=== PATIENT | male | born 1940 | race African-American/Black ===

== ENCOUNTER 2017-03-02 19:31 | Emergency (ER) | payer OTHER ==
[2017-03-02 19:52] VITALS: BP 145/76; BMI 29.6
--- NOTE | 2017-03-02 22:56 | PDOC ---
History of Present Illness - General History Source: Patient, Family, Old Records Exam Limitations: No Limitations <Brooklynn Adam - Last Filed: 03/03/17 00:20> <Favian Beltrán - Last Filed: 03/03/17 02:05> <Thuan Elizondo - Last Filed: 03/03/17 05:35> - General Chief Complaint: Chest Pain Stated Complaint: CHEST PAIN Time Seen by Provider: 03/02/17 22:56 - History of Present Illness Initial Comments: 03/03/17 00:20 The patient is a 76 year old male, with a significant past medical history of hypertension, atrial fibrillation (on Eliquis) s/p recent ablation, diabetes, GERD and prostate CA, who presents to the emergency department with chest discomfort and intermittent palpitations from approximately 4-7 PM this afternoon. The patient reports that he recently had a cardiac ablation done on at [facility]. The patient reports that he took 2 Tylenol after the onset of the chest discomfort, with relief of symptoms. Currently in the ED, the patient states that the chest discomfort has completely subsided. The patient additionally reports decreased hearing out of the right ear and right ear ringing, which the patient states suddenly started earlier today. The patient denies any recent swimming. The patient additionally reports a dry cough for the past 5 days. The patient denies shortness of breath. The patient denies fever, chills, nausea, vomiting or diarrhea. The patients family is at the bedside. The patients primary language is Bulgarian. Allergies: None reported. Past Surgical History: Cardiac Ablation; Cholecystectomy. Social History: Non smoker. Denies alcohol or drug use. PCP: Dr. Patel Ingot Header: Dr. Ornelas (Brooklynn Adam) Past History <Brooklynn Adam - Last Filed: 03/03/17 00:20> - Past Medical History Cardiac Disorders: Yes (A FIB) Diabetes: Yes (NIDDM) GI Disorders: Yes (ACID REFLUX) Disorders: Yes (PROSTATE CANCER) HTN: Yes Suicide Attempt (Hx): No - Surgical History Cholecystectomy: Yes - Psycho/Social/Smoking Cessation Hx Anxiety: No Suicidal Ideation: No Smoking History: Never smoked Hx Alcohol Use: No (social in past) Drug/Substance Use Hx: No Substance Use Type: None <Favian Beltrán - Last Filed: 03/03/17 02:05> <Thuan Elizondo - Last Filed: 03/03/17 05:35> - Past Medical History Allergies/Adverse Reactions: Allergies Allergy/AdvReac Type Severity Reaction Status Date / Time No Known Allergies Allergy Verified 03/02/17 19:52 Home Medications: Ambulatory Orders Ferrous Sulfate [Feosol] 325 mg PO DAILY 02/20/15 Fluticasone Propionate [Flovent Hfa] 44 mcg IH BID 02/20/15 Metoprolol Tartrate [Lopressor] 100 mg PO BID 02/20/15 Simvastatin [Zocor -] 10 mg PO HS 02/20/15 Acetaminophen [Tylenol] 500 mg PO QID PRN #0 02/22/15 Albuterol 0.083% Nebulizer Jennifer [Ventolin 0.083% Nebulizer Soln -] 1 neb NEB QID #0 02/22/15 Amiodarone HCl 100 mg PO BID #60 tablet 02/22/15 Apixaban [Eliquis -] 5 mg PO BID #60 tablet 02/22/15 Apixaban [Eliquis -] 5 mg PO DAILY #30 tablet 02/22/15 Fluoxetine HCl [Prozac -] 20 mg PO DAILY #0 02/22/15 Furosemide [Lasix -] 40 mg PO BID@0600,1400 #60 tablet 02/22/15 Glimepiride [Glimepiride -] 1 mg PO DAILY #30 tablet 02/22/15 Guaifenesin/D-Methorphan Hb [Diabetic Tussin Dm -] 5 ml PO Q6H PRN #30 ml Mometasone Furoate [Asmanex 220Mcg -] 1 inh IH HS #1 ih 02/22/15 Pantoprazole Sodium [Protonix] 40 mg PO DAILY #30 tablet. 02/22/15 Carbamide Peroxide 6.5% [Debrox -] 5 drop AD BID #1 bottle 03/03/17 Review of Systems - Review of Systems Able to Perform ROS?: Yes <Brooklynn Adam - Last Filed: 03/03/17 00:20> <Favian Beltrán - Last Filed: 03/03/17 02:05> <Thuan Elizondo - Last Filed: 03/03/17 05:35> - Review of Systems Comments:: 03/02/17 23:59 CONSTITUTIONAL: No fever, no chills, no fatigue EYES: No visual changes ENT: +Decreased hearing from right ear, right ear ringing. No ear pain, no sore throat CARDIOVASCULAR: +Chest discomfort, palpitations. RESPIRATORY: +Cough. No SOB GI: No abdominal pain, no nausea, no vomiting, no constipation, no diarrhea GENITOURINARY: No dysuria, no frequency, no hematuria MUSKULOSKELETAL: No back pain, no joint pain, no myalgias SKIN: No rash NEURO: No headache (Brooklynn Adam) *Physical Exam <Brooklynn Adam - Last Filed: 03/03/17 00:20> <Favian Beltrán - Last Filed: 03/03/17 02:05> <Tuhan Elizondo - Last Filed: 03/03/17 05:35> - Vital Signs Last Vital Signs Temp Pulse Resp BP Pulse Ox 98 F 69 18 145/76 98 03/02/17 19:49 03/02/17 19:49 03/02/17 19:49 03/02/17 19:49 03/02/17 19:49 - Physical Exam Comments: 03/02/17 23:41 CONSTITUTIONAL: Well-appearing; well-nourished; in no apparent distress. HEAD: Normocephalic; atraumatic. EYES: PERRL; EOM intact. ENMT: Right ear, complete cerumen impaction. External appears normal; normal oropharynx. NECK: Supple; non-tender; no cervical lymphadenopathy. CARD: Normal S1, S2; no murmurs, rubs, or gallops. RESP: Normal chest excursion with respiration; breath sounds clear and equal bilaterally; no wheezes, rhonchi, or rales. ABD: Soft, non-distended; non-tender; no palpable organomegaly, no palpable hernias. EXT: Normal ROM in all four extremities; non-tender to palpation; distal pulses intact. SKIN: Small hematoma to the right groin. Warm, dry, no rash. NEURO: No focal neurological deficiencies. (Brooklynn Adam) Heart Score/ECG Review #1 ECG reviewed & interpreted by me at: 19:43 (Vent Rate: 73 bpm. Normal sinus rhythm. ) <Brooklynn Adam - Last Filed: 03/03/17 00:20> ED Treatment Course - LABORATORY CBC & Chemistry Diagram: 03/03/17 00:16 03/03/17 00:16 <Brooklynn Adam - Last Filed: 03/03/17 00:20> - LABORATORY CBC & Chemistry Diagram: 03/03/17 00:16 03/03/17 00:16 <Favian Beltrán - Last Filed: 03/03/17 02:05> - LABORATORY CBC & Chemistry Diagram: 03/03/17 00:16 03/03/17 00:16 <Thuan Elizondo - Last Filed: 03/03/17 05:35> - ADDITIONAL ORDERS Additional order review: Laboratory Results 03/03/17 03/03/17 04:42 00:16 Sodium 142 Potassium 3.9 Chloride 103 Carbon Dioxide 28 Anion Gap 11 BUN 20 H D Creatinine 2.5 H Creat Clearance w eGFR 25.17 Random Glucose 126 H D Calcium 8.3 L Total Bilirubin 0.3 D AST 14 L D ALT 22 D Alkaline Phosphatase 85 Creatine Kinase 72 81 Troponin I 0.12 H 0.12 H D Total Protein 7.7 Albumin 3.3 L 03/03/17 00:16 RBC 4.23 MCV 75.1 L MCHC 30.2 L RDW 17.4 H MPV 8.9 Neutrophils % 43.4 D Lymphocytes % 46.9 H D Monocytes % 7.8 Eosinophils % 1.6 Basophils % 0.3 - Medications Given in the ED: ED Medications Discontinued Medications Generic Name Dose Route Start Last Admin Trade Name Freq PRN Reason Stop Dose Admin Furosemide 40 mg 03/03/17 01:57 03/03/17 03:14 Lasix Injection - IVPUSH 03/03/17 01:58 40 mg ONCE ONE Administration Medical Decision Making <Brooklynn Adam - Last Filed: 03/03/17 00:20> <Favian Beltrán - Last Filed: 03/03/17 02:05> <Thuan Elizondo - Last Filed: 03/03/17 05:35> - Medical Decision Making 03/03/17 02:05 Patient is well-appearing 76-year-old male with multiple comorbidities, status post ablation for atrial flutter presents with atypical chest discomfort and loss of hearing in the right ear with tinnitus. In the ER, patient is awake and alert, well-appearing, in no distress. Right external auditory meatus is impacted with cerumen and I'm unable to evaluate the tympanic membrane. I do not suspect a central cause for the patient's symptoms. Chest pain is atypical and I do not suspect ACS at this time. EKG reveals no evidence of acute ischemia. Chest x-ray reveals cephalization and interstitial edema which appears similar to CT of chest performed in 2015. First set of cardiac enzymes also reveals a minimally elevated troponin of 0.12 and normal CPK likely related to ablation performed within the past week. We'll administer Lasix-40 mg IV push as well as Will repeat cardiac enzymes at 6 hours and if unchanged or trending down will discharge with cardiology follow-up. (Favian Beltrán) *DC/Admit/Observation/Transfer <Brooklynn Adam - Last Filed: 03/03/17 00:20> <Favian Beltrán - Last Filed: 03/03/17 02:05> <Thuan Elizondo - Last Filed: 03/03/17 05:35> Diagnosis at time of Disposition: Impacted cerumen of right ear Chest pain Qualifiers: Chest pain type: unspecified Qualified Code(s): R07.9 - Chest pain, unspecified - Discharge Dispostion Disposition: HOME Condition at time of disposition: Stable - Referrals Referrals: Aubree Marie MD [Primary Care Provider] - Valentin Mitchell MD [Staff Physician] - - Patient Instructions Printed Discharge Instructions: DI for Chest Pain, DI for Cerumen Impaction Print Language: HUNGARIAN - Attestations Scribe Attestion: 03/02/17 22:57 Documentation prepared by Brooklynn Adam, acting as medical insurance coding specialist for Favian Beltrán MD. (Brooklynn Adam) Physician Attestion: 03/03/17 02:05 The documentation was prepared by the scribe under my direct supervision. I have reviewed the documentation which correctly represents the findings, medical decision-making and critical action taken by me. (Favian Beltrán)
[2017-03-03 00:21] LABS: BASOPHIL 0.3 % (0-2.0); EOSINOPHIL 1.6 % (0-4.5); MCH 22.7 pg (25.7-33.7); MCHC 30.2 g/dl (32.0-35.9); MEAN CELL VOLUME 75.1 fl (80-96); MEAN PLT VOLUME 8.9 fl (7.5-11.1); NEUTROPHILS 43.4 % (42.8-82.8); PLATELET COUNT 197 K/MM3 (134-434); RDW 17.4 % (11.9-15.9); WHITE BLOOD COUNT 11.3 K/mm3 (4.0-10.0)
[2017-03-03 00:51] LABS: ALBUMIN 3.3 g/dl (3.4-5.0); BILIRUBIN,TOTAL 0.3 mg/dL (0.2-1.0); CALCIUM 8.3 mg/dL (8.5-10.1); COCKROFT - GAULT 30.95; CREATININE 2.5 mg/dL (0.7-1.3); TOT PROT 7.7 g/dl (6.4-8.2)
[2017-03-03 00:53] LABS: TROPONIN I 0.12 ng/ml (0.00-0.05)
[2017-03-03] MEDS ORDERED: FUROSEMIDE 40 MG/4 ML INJECTABLE VIAL IVPUSH ONE (01:57)
[2017-03-03] MEDS ORDERED: FUROSEMIDE 40 MG/4 ML INJECTABLE VIAL ONE (03:12)
[2017-03-03 05:12] LABS: TROPONIN I 0.12 ng/ml (0.00-0.05)
--- NOTE | 2017-03-03 05:26 | PDOC ---
*Physical Exam - Vital Signs Last Vital Signs Temp Pulse Resp BP Pulse Ox 98 F 69 18 145/76 98 03/02/17 19:49 03/02/17 19:49 03/02/17 19:49 03/02/17 19:49 03/02/17 19:49 ED Treatment Course - LABORATORY CBC & Chemistry Diagram: 03/03/17 00:16 03/03/17 00:16 - ADDITIONAL ORDERS Additional order review: Laboratory Results 03/03/17 03/03/17 04:42 00:16 Sodium 142 Potassium 3.9 Chloride 103 Carbon Dioxide 28 Anion Gap 11 BUN 20 H D Creatinine 2.5 H Creat Clearance w eGFR 25.17 Random Glucose 126 H D Calcium 8.3 L Total Bilirubin 0.3 D AST 14 L D ALT 22 D Alkaline Phosphatase 85 Creatine Kinase 72 81 Troponin I 0.12 H 0.12 H D Total Protein 7.7 Albumin 3.3 L 03/03/17 00:16 RBC 4.23 MCV 75.1 L MCHC 30.2 L RDW 17.4 H MPV 8.9 Neutrophils % 43.4 D Lymphocytes % 46.9 H D Monocytes % 7.8 Eosinophils % 1.6 Basophils % 0.3 - Medications Given in the ED: ED Medications Discontinued Medications Generic Name Dose Route Start Last Admin Trade Name Freq PRN Reason Stop Dose Admin Furosemide 40 mg 03/03/17 01:57 03/03/17 03:14 Lasix Injection - IVPUSH 03/03/17 01:58 40 mg ONCE ONE Administration Medical Decision Making - Medical Decision Making 03/03/17 05:25 CE x 2 are negative. Pt to be discharged and follow up with his doctor and environmental science instructor 03/03/17 05:31 Pt states he has ear ringing. Pt hemodynamically stable. Pt to follow up with ENT. *DC/Admit/Observation/Transfer Diagnosis at time of Disposition: Chest pain Qualifiers: Chest pain type: unspecified Qualified Code(s): R07.9 - Chest pain, unspecified Ear ringing Qualifiers: Laterality: right Qualified Code(s): H93.11 - Tinnitus, right ear - Discharge Dispostion Disposition: HOME Condition at time of disposition: Stable Admit: No - Referrals Referrals: Aubree Marie MD [Primary Care Provider] - Valentin Mitchell MD [Staff Physician] - - Patient Instructions Printed Discharge Instructions: DI for Chest Pain - Post Discharge Activity
[2017-03-03 06:00] VITALS: PULSE 68; TEMP 98.2
--- NOTE | 2017-03-04 11:42 | EKG ---
Test Reason : Blood Pressure : / mmHG Vent. Rate : 073 BPM Atrial Rate : 073 BPM P-R Int : 188 ms QRS Dur : 082 ms QT Int : 450 ms P-R-T Axes : 050 014 052 degrees QTc Int : 495 ms NORMAL SINUS RHYTHM SEPTAL INFARCT , AGE UNDETERMINED ABNORMAL ECG WHEN COMPARED WITH ECG OF 21-FEB-2015 10:20, SINUS RHYTHM HAS REPLACED ATRIAL FIBRILLATION NON-SPECIFIC CHANGE IN ST SEGMENT IN INFERIOR LEADS NONSPECIFIC T WAVE ABNORMALITY NO LONGER EVIDENT IN INFERIOR LEADS Confirmed by IRSA ESCOTO MD ([id number]) on 03/04/2017 11:41:34 AM Referred By: Confirmed By:ISRA ESCOTO MD
== END 2017-03-03 06:00 | disposition home or self-care (01) ==
LOC: JER 19:31
PROC: 3E033GC Introduction of Other Therapeutic Substance into Peripheral Vein, Percutaneous Approach (ICD-10-PCS; principal; 2017-03-02)
DX: R07.89 Other chest pain (principal); H61.21 Impacted cerumen, right ear; I10 Essential (primary) hypertension; I48.91 Unspecified atrial fibrillation; Z79.01 Long term (current) use of anticoagulants; E11.9 Type 2 diabetes mellitus without complications; K21.9 Gastro-esophageal reflux disease without esophagitis; Z85.46 Personal history of malignant neoplasm of prostate
CPT/HCPCS: 36415; 71020-TC; 80053; 82550; 84484; 85025; 93005; 93010; 96374; 99282-25

== ENCOUNTER 2017-04-02 07:05 | Day surgery (SDC) | payer OTHER ==
[2017-03-29 10:13] VITALS: BMI 29.6
[2017-04-02] MEDS ORDERED: PROPOFOL 20 ML ONE ×2 (07:08)
[2017-04-02] MEDS ORDERED: ONDANSETRON 4 MG/2 ML VIAL ONE (08:16)
[2017-04-02] MEDS ORDERED: MIDAZOLAM HCL 2 MG/2 ML SINGLE DOSE VIAL ONE (08:16)
[2017-04-02 10:00] VITALS: TEMP 97.8
[2017-04-02 10:36] VITALS: BP 121/60; PULSE 55
--- NOTE | 2017-04-05 16:17 | PATH ---
Surgical Pathology Report Patient Name: KATHIA QUINN [facility]. Rec. #: [id number] /Age/Gender: 1940 (Age: 77) / M Account: [id number] Location: [facility]-ENDOSCOPY Taken: 04/02/2017 Received: 04/02/2017 Reported: 04/05/2017 Physicians: Shanthi Damon M.D. Specimen(s) Received A: BX PROXIMAL SIGMOID B: BX DISTAL SIGMOID C: BX ANTRUM Clinical History Dyspepsia, constipation Polyps, antral mass Final Diagnosis A. PROXIMAL SIGMOID, BIOPSY: TUBULAR ADENOMA. B. DISTAL SIGMOID, BIOPSY: TUBULAR ADENOMA. C. ANTRUM, POLYP, POLYPECTOMY: HYPERPLASTIC POLYP (S). IMMUNOSTAINS ARE NEGATIVE FOR H. PYLORI ORGANISMS. Electronically Signed Devika Wahl M.D. Gross Description A. Received in formalin, labeled "proximal sigmoid" is a treadwell, irregular portion of soft tissue measuring 0.3 cm. in greatest dimension. The specimen is submitted in toto in one cassette. B. Received in formalin, labeled "distal sigmoid" is a treadwell, polypoid portion of soft tissue measuring 0.6 cm. in greatest dimension. The specimen is submitted in toto in one cassette. C. Received in formalin labeled "antrum," are 4 treadwell-brown, polypoid portions of soft tissue ranging from 0.6 x 0.5 x 0.3 cm to 2.2 x 2.2 x 1.7 cm. The specimens are sectioned and entirely submitted in 7 cassettes as follows: 1-one whole bisected polyp; 2-one whole trisected polyp; 3-one whole quadrasected polyp; 4-7-one whole serially sectioned polyp. 04/02/2017 saudi04/02/2017
== END 2017-04-02 10:38 | disposition home or self-care (01) ==
LOC: FASU-ENDO 07:05
PROVIDERS: ATTEND Internal Medicine
PROC: 0DB68ZX Excision of Stomach, Via Natural or Artificial Opening Endoscopic, Diagnostic (ICD-10-PCS; principal; 2017-04-02 08:30)
PROC: 0DBN8ZX Excision of Sigmoid Colon, Via Natural or Artificial Opening Endoscopic, Diagnostic (ICD-10-PCS; 2017-04-02 08:30)
DX: K31.7 Polyp of stomach and duodenum (principal); D12.5 Benign neoplasm of sigmoid colon; K64.8 Other hemorrhoids; K30 Functional dyspepsia; K59.01 Slow transit constipation
CPT/HCPCS: 88305-TC; 88342-TC

== ENCOUNTER 2019-02-05 06:14 | Observation (INO) | payer OTHER ==
[2019-02-05] MEDS ORDERED: dilTIAZem HCL 50 MG/10 ML - 10 ML VIAL IVPUSH ONE (06:45)
[2019-02-05] MEDS ORDERED: dilTIAZem HCL 125 MG/25 ML - 25 ML VIAL ONE (06:49)
--- NOTE | 2019-02-05 06:58 | PDOC ---
History of Present Illness - General Chief Complaint: Blood Pressure Problem Stated Complaint: HIGH BP Past History - Past Medical History Allergies/Adverse Reactions: Allergies Allergy/AdvReac Type Severity Reaction Status Date / Time No Known Drug Allergies Allergy Verified 02/05/19 06:39 Home Medications: Ambulatory Orders Metoprolol Tartrate [Lopressor] 100 mg PO BID 02/20/15 Simvastatin [Zocor -] 10 mg PO HS 02/20/15 Furosemide [Lasix -] 40 mg PO BID@0600,1400 #60 tablet 02/22/15 Glimepiride [Glimepiride -] 1 mg PO DAILY #30 tablet 02/22/15 Acetaminophen [Tylenol] 500 mg PO QID PRN 03/29/17 Apixaban [Eliquis] 2.5 mg PO BID 03/29/17 Omeprazole 40 mg PO DAILY 03/29/17 Candesartan Cilexetil [Atacand (Nf) -] 4 mg PO DAILY 11/01/18 Diclofenac Sodium [Voltaren] 2 gm TP TID PRN #3 tube 11/01/18 Glucosam/Chond/Collagen/Hyalur [Glucosamine Chondroitin Cap] 1 each PO BID #60 capsule 11/01/18 Turmeric/Turmeric Ext/Pepr Ext [Turmeric Complex 500 mg Cap] 1 each PO DAILY # 30 capsule 11/01/18 Tizanidine HCl [Zanaflex (Nf) -] 0 mg PO TID PRN #90 tablet 02/02/19 Anemia: Yes (RECEIVES IRON IV BECAUSE IRON LEVELS LOW ONCE A WEEK) Asthma: No Cancer: Yes (PROSTATE 1998,HAS SURGERY ;NO CHEMO/RT) Cardiac Disorders: Yes (A FIB,HAD ABLATION FEBRUARY 24 2017 FOR "RAPID HEARTBEAT") CVA: Yes ("LITTLE STROKE", 2001,NO RESIDUAL EFFECT) COPD: No CHF: No Dementia: No Diabetes: Yes (NIDDM) GI Disorders: Yes (ACID REFLUX) Disorders: Yes (PROSTATE CANCER) HTN: Yes Hypercholesterolemia: Yes Liver Disease: No Seizures: No Thyroid Disease: No - Surgical History Abdominal Surgery: Yes (EXCISION CYST IN PANCREAS) Appendectomy: No Cardiac Surgery: Yes (ablation 02/2017) Cholecystectomy: Yes Lung Surgery: No Neurologic Surgery: No Orthopedic Surgery: No - Suicide/Smoking/Psychosocial Hx Smoking History: Never smoked Have you smoked in the past 12 months: No Information on smoking cessation initiated: No Hx Alcohol Use: No Drug/Substance Use Hx: No Substance Use Type: None Hx Substance Use Treatment: No *Physical Exam - Vital Signs Last Vital Signs Temp Pulse Resp BP Pulse Ox 98.5 F 154 H 20 124/68 100 02/05/19 06:20 02/05/19 06:20 02/05/19 06:20 02/05/19 06:20 02/05/19 06:20 Moderate Sedation - Procedure Monitoring Vital Signs: Procedure Monitoring Vital Signs Temperature 98.5 F 02/05/19 06:20 Pulse Rate 154 H 02/05/19 06:20 Respiratory Rate 20 02/05/19 06:20 Blood Pressure 124/68 02/05/19 06:20 O2 Sat by Pulse Oximetry (%) 100 02/05/19 06:20 ED Treatment Course - RADIOLOGY Radiology Studies Ordered: Category Date Time Status CHEST PA & LAT [RAD] Stat Radiology 02/05/19 06:42 Ordered Medical Decision Making - Medical Decision Making 02/05/19 06:48 Roberto Lang is a 78yo man with a PMH of DM2, CVA (2001), CKD3, HTN, HLD, paroxysmal a-fib on Eliquis, GERD, anemia who presented to the ED with HR 154. He c/o palpitations and SOB. - Suspect a-fib w/ RVR. Unclear cause. Pt reports this has happened before - On Eliquis, no concern for possible thrombus or time of onset - CBC, chemistry, EKG, CXR, trop. Adding blood cultures and lactate to r/o bacteremia as a cause. *DC/Admit/Observation/Transfer - Referrals Referrals: Aubree Marie MD [Primary Care Provider] - - Patient Instructions - Post Discharge Activity
[2019-02-05] MEDS ORDERED: dilTIAZem HCL 60 MG TABLET (FP) PO ONE (07:11)
--- NOTE | 2019-02-05 07:11 | PDOC ---
History of Present Illness - General Chief Complaint: Blood Pressure Problem Stated Complaint: HIGH BP Time Seen by Provider: 02/05/19 07:06 - History of Present Illness Initial Comments: 02/05/19 07:06 The patient is a 78 year old male with a significant PMH of NIDDM, CKD (Stage 3) , CVA (2001, w/o residual deficits), Paroxysmal AFib (s/p ablation in February 2017 ;on Eliquis), HTN, HLD, Prostate CA and GERD who presents to our ED c/o acute onset and shortness of breath. Patient states was in his normal state of health yesterday evening when he went to bed around 12 a.m. Patient woke up around 2 a.m. with shortness of breath and palpitations. @ bedside assists in history and states she measured his BP and it was 157/102 with a HR 150's prompting her to bring him to the ED. Patient states he is his adherent to his medication regimen and last took his medications yesterday before bed. notes patient has not c/o palpitations since the ablation in 2016 however for the last 6 months he has been c/o increasing shortness of breath on exertion. The patient was last evaluated by his insulation foreman two months previous at which time his Losartan was switched to Candesartan. No other recent medication changes. The patient denies lower extremity swelling, chest pain, abdominal pain, nausea/ vomiting, diarrhea/constipation, dysuria/hematuria. NKDA Surgical: Atrial ablation (February 2017), Cholecystectomy PMD: Dr. Patel Auto Porter: Dr. Lincoln As per EMR, patient last evaluated in our ED in 2016 for chest pain at which time EKG showed no acute findings and Troponin (-) x2. Patient discharged home with cardiology, PMD follow-up for further evaluation. Past History - Past Medical History Allergies/Adverse Reactions: Allergies Allergy/AdvReac Type Severity Reaction Status Date / Time No Known Drug Allergies Allergy Verified 02/05/19 06:39 Home Medications: Ambulatory Orders Metoprolol Tartrate [Lopressor] 100 mg PO BID 02/20/15 Simvastatin [Zocor -] 10 mg PO HS 02/20/15 Glimepiride [Glimepiride -] 1 mg PO DAILY #30 tablet 02/22/15 Acetaminophen [Tylenol] 500 mg PO QID PRN 03/29/17 Apixaban [Eliquis] 2.5 mg PO BID 03/29/17 Candesartan Cilexetil [Atacand (Nf) -] 4 mg PO DAILY 11/01/18 Amlodipine Besylate 5 mg PO DAILY 02/05/19 Furosemide [Lasix] 80 mg PO BID 02/05/19 Pantoprazole Sodium [Protonix] 40 mg PO DAILY 02/05/19 Anemia: Yes (RECEIVES IRON IV BECAUSE IRON LEVELS LOW ONCE A WEEK) Asthma: No Cancer: Yes (PROSTATE 1998,HAS SURGERY ;NO CHEMO/RT) Cardiac Disorders: Yes (A FIB,HAD ABLATION FEBRUARY 24 2017 FOR "RAPID HEARTBEAT") CVA: Yes ("LITTLE STROKE", 2001,NO RESIDUAL EFFECT) COPD: No CHF: No Dementia: No Diabetes: Yes (NIDDM) GI Disorders: Yes (ACID REFLUX) Disorders: Yes (PROSTATE CANCER) HTN: Yes Hypercholesterolemia: Yes Liver Disease: No Seizures: No Thyroid Disease: No - Surgical History Abdominal Surgery: Yes (EXCISION CYST IN PANCREAS) Appendectomy: No Cardiac Surgery: Yes (ablation 02/2017) Cholecystectomy: Yes Lung Surgery: No Neurologic Surgery: No Orthopedic Surgery: No - Immunization History Immunization Up to Date: Yes - Suicide/Smoking/Psychosocial Hx Smoking History: Never smoked Have you smoked in the past 12 months: No Information on smoking cessation initiated: No Hx Alcohol Use: No Drug/Substance Use Hx: No Substance Use Type: None Hx Substance Use Treatment: No Review of Systems - Review of Systems Constitutional: No: Chills, Fever HEENTM: No: Recent change in vision Respiratory: Yes: Shortness of Breath. No: Cough, Stridor, Wheezing Cardiac (ROS): Yes: Palpitations. No: Chest Pain, Lightheadedness, Syncope, Chest Tightness ABD/GI: No: Constipated, Diarrhea, Nausea, Rectal Bleeding, Vomiting *Physical Exam - Vital Signs Last Vital Signs Temp Pulse Resp BP Pulse Ox 98.5 F 153 H 20 124/68 99 02/05/19 06:20 02/05/19 06:52 02/05/19 06:20 02/05/19 06:20 02/05/19 06:52 - Physical Exam General Appearance: Yes: Nourished, Appropriately Dressed HEENT: positive: Normal Voice, Hearing Grossly Normal Neck: positive: Trachea midline, Supple Respiratory/Chest: positive: Lungs Clear, Normal Breath Sounds. negative: Crackles, Rales, Stridor, Wheezing Cardiovascular: positive: S1, S2 Gastrointestinal/Abdominal: positive: Normal Bowel Sounds, Soft Extremity: positive: Normal Capillary Refill, Normal Inspection Integumentary: positive: Normal Color, Dry Neurologic: positive: return clerk II-XII NML intact, Fully Oriented, Alert Moderate Sedation - Procedure Monitoring Vital Signs: Procedure Monitoring Vital Signs Temperature 98.5 F 02/05/19 06:20 Pulse Rate 153 H 02/05/19 06:52 Respiratory Rate 20 02/05/19 06:20 Blood Pressure 124/68 02/05/19 06:20 O2 Sat by Pulse Oximetry (%) 99 02/05/19 06:52 Heart Score/ECG Review - ECG Impressions Comment:: 02/05/19 09:06 Atrial Fibrillation with HR 184, no JESSICA/STD/TWI ED Treatment Course - LABORATORY CBC & Chemistry Diagram: 02/05/19 07:10 02/05/19 07:10 - Medications Given in the ED: ED Medications Discontinued Medications Generic Name Dose Route Start Last Admin Trade Name Freq PRN Reason Stop Dose Admin Diltiazem HCl 10 mg 02/05/19 06:45 02/05/19 07:02 Cardizem Injection - IVPUSH 02/05/19 06:46 10 mg ONCE ONE Administration Medical Decision Making - Medical Decision Making 02/05/19 07:14 78 year old male in AFib w/RVR @ presentation. S/p Diltiazem (10) with repeat HR 70's. EKG, Troponin, labs, Lactic Acid ordered by night team pending. 02/05/19 07:22 s/p Diltiazem - repeat VS HR 79, BP 113/67 02/05/19 07:26 Will give Diltiazem (30 mg) PO for continued rate control 02/05/19 08:04 Patient reassessed @ bedside. VSS Repeat EKG pending 02/05/19 08:14 Troponin (-) x1 CBC unremarkable CMP c/w CKD (Cr 2.2) CXR shows cardiomegaly (c/w previous CXR) - no consolidation/infiltrate/ effusion. As patient has h/o increasing REYES, will admit for cardiac evaluation including MINISTERIO. Microblogged hospitalist who covers for patient's PMD, Dr. Patel. 02/05/19 08:40 Case d/w Dr. Cardona (Hospitalist) request cardiology consult to discuss admission vs. outpatient Holter monitoring 02/05/19 08:44 Case d/w Dr. Donahue (covers for [facility] group - Dr. Lincoln) agrees w/tele admission Patient and patient's family @ bedside counseled on POC Microgblogged hospitalist 02/05/19 08:45 Critical Lab value - Lactic Acid 2.2 - patient receiving IV fluids 02/05/19 08:52 Dr. Cardona (Hospitalist) @ bedside. Clinical Impression: Atrial Fibrillation w/RVR, resolved *DC/Admit/Observation/Transfer Diagnosis at time of Disposition: Atrial fibrillation - Discharge Dispostion Condition at time of disposition: Fair Decision to Admit order: Yes - Referrals - Patient Instructions - Post Discharge Activity
[2019-02-05] MEDS ORDERED: dilTIAZem HCL 30 MG TABLET (FP) PO ONE (07:16)
[2019-02-05] MEDS ORDERED: dilTIAZem HCL 30 MG TABLET (FP) ONE (07:21)
[2019-02-05 07:40] LABS: BASO % 0.2 % (0-2.0); EOS % 1.3 % (0-4.5); HEMATOCRIT 41.7 % (35.4-49); HEMOGLOBIN 14.2 GM/dL (11.7-16.9); LYMPH % 42.5 % (8-40); MCHC 34.1 g/dl (32.0-35.9); MEAN CELL VOLUME 88.2 fl (80-96); MEAN PLT VOLUME 8.8 fl (7.5-11.1); MONO % 5.2 % (3.8-10.2); NEUT % 50.8 % (42.8-82.8); PLATELET COUNT 156 K/MM3 (134-434); RBC 4.72 M/mm3 (4.00-5.60); RDW 13.9 % (11.9-15.9); WHITE BLOOD COUNT 11.5 K/mm3 (4.0-10.0)
--- NOTE | 2019-02-05 07:41 | PDOC ---
Attending Attestation - Resident Resident Name: Monica Porras - ED Attending Attestation I have performed the following: I have examined & evaluated the patient, The case was reviewed & discussed with the resident, I agree w/resident's findings & plan, Exceptions are as noted - HPI HPI: 02/05/19 10:13 Reviewed Residents HPI - Physicial Exam PE: 02/05/19 10:13 Reviewed Residents PE - Critical Care Time Total Critical Care Time: 35 Critical Care Statement: The care of this patient involved high complexity decision making to prevent further life threatening deterioration of the patient 's condition and/or to evaluate & treat vital organ system(s) failure or risk of failure. - Medical Decision Making 02/05/19 10:17 78 years old with past medical history significant for [id number] diabetes, chronic kidney disease, excisional A. fib status post ablation on Eliquis, takes metoprolol for his A. fib presents to the ED with several month history of increasing dyspnea on exertion last night at 12 AM woke up with shortness of breath and palpitations upon arrival to the ED noted to be in A. fib with RVR Patient treated with IV diltiazem with correction of tachydysrhythmia by mouth Cardizem given to maintain rate control Case discussed with cardiology given this several month history of dyspnea on exertion we'll admit hospital for further cardiac evaluation telemetry monitoring and additional workup Heart Score/ECG Review - ECG Impressions Comment:: 02/05/19 14:31 A. fib with RVR no ST elevations or T-wave inversions
[2019-02-05 08:09] LABS: ALBUMIN 3.9 g/dl (3.4-5.0); ALK PHOS 91 U/L (45-117); ANION GAP 6 MMOL/L (8-16); BILIRUBIN,TOTAL 0.4 mg/dL (0.2-1); BLOOD UREA NITROGEN 21 mg/dL (7-18); CHLORIDE 104 mmol/L (98-107); CO2 28 mmol/L (21-32); CREATININE 2.2 mg/dL (0.55-1.3); GLUCOSE,RANDOM 149 mg/dL (74-106); MAGNESIUM 2.5 mg/dL (1.8-2.4); POTASSIUM 3.8 mmol/L (3.5-5.1); SGOT/AST 13 U/L (15-37); SGPT/ALT 19 U/L (13-61); SODIUM 138 mmol/L (136-145); TOT PROT 8.3 g/dl (6.4-8.2)
[2019-02-05 08:21] LABS: INR 1.03 (0.83-1.09); PROTHROMBIN TIME (PATIENT) 12.1 SEC (9.7-13.0)
--- NOTE | 2019-02-05 09:15 | HP ---
CHIEF COMPLAINT: shortness of breath and palpitations PCP: Dr. Patel Marketing Specialist: Dr. Ornelas Switchboard Inspector: Dr. Ramirez HISTORY OF PRESENT ILLNESS: 78 yom with PMH xof PAf on Eliquis/Amiodarone, s/p ablation 2 years ago, Non obstructive CAD, severe mitral regurgitation, diastolic Heart failure, HTN, HLD , NIDDM, CKD stage II (baseline Cr around 2), SOLEDAD, Prostate cancer 1998 s/p surgery, history of GI ulcer and GI polyp, history of rod arrest during anesthesia induction for endoscopy comes with sudden onset of palpitations with dyspnea around 1:30 this morning, came to ED, was found in Afib with RVR 150s s/ p 10 mg and 30 mg PO cardizem IV, now in NSR 50s-60s. patient reports similar symptoms of palpitations/dyspnea 2-3 times a week, with self-resolution since his ablation. 12 point ROS done, neg for any fevers, chills, chest pain, exertional dyspnea, PND, orthopnea, leg swelling, abdominal or urinary symptoms. ER course was notable for: (1) Cardizem 10 mg IV x 1 (2) Cardizem 30 mg PO x 1 (3) cardiology consult (case discussed with Dr. 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 Family History: Allergies No Known Drug Allergies Allergy (Verified 02/05/19 06:39) HOME MEDICATIONS: Home Medications Medication Instructions Recorded Metoprolol Tartrate [Lopressor] 100 mg PO BID 02/20/15 Simvastatin [Zocor -] 10 mg PO HS 02/20/15 Furosemide [Lasix -] 40 mg PO BID@0600,1400 #60 tablet 02/22/15 Glimepiride [Glimepiride -] 1 mg PO DAILY #30 tablet 02/22/15 Acetaminophen [Tylenol] 500 mg PO QID PRN 03/29/17 Apixaban [Eliquis] 2.5 mg PO BID 03/29/17 Omeprazole 40 mg PO DAILY 03/29/17 Candesartan Cilexetil [Atacand 4 mg PO DAILY 11/01/18 (Nf) -] REVIEW OF SYSTEMS CONSTITUTIONAL: Absent: fever, chills, diaphoresis, generalized weakness, malaise, loss of appetite, weight change HEENT: Absent: rhinorrhea, nasal congestion, throat pain, throat swelling, difficulty swallowing, mouth swelling, ear pain, eye pain, visual changes CARDIOVASCULAR: Present palpitations, irregular heart rate Absent: chest pain, syncope, palpitations, irregular heart rate, lightheadedness , peripheral edema RESPIRATORY: Present: shortness of breath Absent: cough, shortness of breath, dyspnea with exertion, orthopnea, wheezing, stridor, hemoptysis GASTROINTESTINAL: Absent: abdominal pain, abdominal distension, nausea, vomiting, diarrhea, constipation, melena, hematochezia GENITOURINARY: Absent: dysuria, frequency, urgency, hesitancy, hematuria, flank pain, genital pain MUSCULOSKELETAL: Absent: myalgia, arthralgia, joint swelling, back pain, neck pain SKIN: Absent: rash, itching, pallor HEMATOLOGIC/IMMUNOLOGIC: Absent: easy bleeding, easy bruising, lymphadenopathy, frequent infections ENDOCRINE: Absent: unexplained weight gain, unexplained weight loss, heat intolerance, cold intolerance NEUROLOGIC: Absent: headache, focal weakness or paresthesias, dizziness, unsteady gait, seizure, mental status changes, bladder or bowel incontinence PSYCHIATRIC: Absent: anxiety, depression, suicidal or homicidal ideation, hallucinations. PHYSICAL EXAMINATION Vital Signs - 24 hr 02/05/19 02/05/19 02/05/19 06:20 06:52 07:16 Temperature 98.5 F Pulse Rate 154 H 153 H Pulse Rate [ 79 Left Radial] Respiratory 20 20 Rate Blood Pressure 124/68 Blood Pressure 113/67 [Left Arm] O2 Sat by Pulse 100 99 100 Oximetry (%) 02/05/19 02/05/19 08:17 08:20 Temperature Pulse Rate 62 Pulse Rate [ 62 Left Radial] Respiratory 19 Rate Blood Pressure Blood Pressure 121/71 [Left Arm] O2 Sat by Pulse 100 100 Oximetry (%) GENERAL: Awake, alert, and fully oriented, in no acute distress. HEAD: Normal with no signs of trauma. EYES: Pupils equal, round and reactive to light, extraocular movements intact, sclera anicteric, conjunctiva clear. No lid lag. EARS, NOSE, THROAT: Ears normal, nares patent, oropharynx clear without exudates. Moist mucous membranes. NECK: Normal range of motion, supple, no JVD LUNGS: Breath sounds equal, clear to auscultation bilaterally. No wheezes, and no crackles. No accessory muscle use. HEART: Regular rate and rhythm, normal S1 and S2 (Telemetry Sinus rhythm 50s on monitor) ABDOMEN: Soft, nontender, not distended, normoactive bowel sounds, no guarding, no rebound, no masses. No hepatomegaly or splenomegaly appreciated. MUSCULOSKELETAL: Normal range of motion at all joints. No bony deformities or tenderness. No CVA tenderness. UPPER EXTREMITIES: 2+ pulses, warm, well-perfused. No cyanosis. No clubbing. No peripheral edema. LOWER EXTREMITIES: 2+ pulses, warm, well-perfused. No calf tenderness. No peripheral edema. NEUROLOGICAL: AAOX3, power 5/5 ,sensation intact and symmetric to light touch, Cranial nerves II-XII intact. Normal speech. Gait not observed. PSYCHIATRIC: Cooperative. Good eye contact. Appropriate mood and affect. SKIN: Warm, dry, normal turgor, no rashes or lesions noted, normal capillary refill. Laboratory Results - last 24 hr 02/05/19 02/05/19 02/05/19 07:10 07:10 07:10 WBC 11.5 H RBC 4.72 Hgb 14.2 Hct 41.7 MCV 88.2 MCH 30.0 MCHC 34.1 RDW 13.9 Plt Count 156 MPV 8.8 Absolute Neuts (auto) 5.9 Neutrophils % 50.8 Lymphocytes % 42.5 H Monocytes % 5.2 Eosinophils % 1.3 Basophils % 0.2 Nucleated RBC % 0 PT with INR 12.10 INR 1.03 Sodium 138 Potassium 3.8 Chloride 104 Carbon Dioxide 28 Anion Gap 6 L BUN 21 H Creatinine 2.2 H Creat Clearance w eGFR 29.02 Random Glucose 149 H Lactic Acid Calcium 9.0 Magnesium 2.5 H Total Bilirubin 0.4 AST 13 L ALT 19 Alkaline Phosphatase 91 Creatine Kinase 106 Troponin I < 0.02 Total Protein 8.3 H Albumin 3.9 02/05/19 07:10 WBC RBC Hgb Hct MCV MCH MCHC RDW Plt Count MPV Absolute Neuts (auto) Neutrophils % Lymphocytes % Monocytes % Eosinophils % Basophils % Nucleated RBC % PT with INR INR Sodium Potassium Chloride Carbon Dioxide Anion Gap BUN Creatinine Creat Clearance w eGFR Random Glucose Lactic Acid 2.2 H* Calcium Magnesium Total Bilirubin AST ALT Alkaline Phosphatase Creatine Kinase Troponin I Total Protein Albumin EKG 1 Afib 150s, rate related ST depression in V3-V6 EKG 2 unchanged Telemetry: currently sinus rhythm 50s CXR - no acute process ASSESSMENT/PLAN: 78 yom with PMHx of PAf on Eliquis/Amiodarone, s/p ablation 2 years ago, Non obstructive CAD, severe mitral regurgitation, diastolic Heart failure, HTN, HLD , NIDDM, CKD stage II (baseline Cr around 2), [place], Prostate cancer 1998 s/p surgery, history of GI ulcer and GI polyp, history of rod arrest during anesthesia induction for endoscopy admitted with Afib with RVR -Atrial fibrillation with RVR, now in NSR -S/p reported ablation 2 years ago -Non obstructive CAD -Severe mitral regurgitation -Diastolic Heart failure -HTN -HLD -NIDDM -CKD stage II (Baseline creatinine around 2) -[facility] -Prostate cancer 1998 s/p surgery -H/o GI ulcer/Polyp -h/o rod arrest during anesthesia induction for endoscopy Plan: Currently in NSR. Cardiology consult Dr Donahue Continue metoprolol/amiodarone/eliquis Check 2D echo Check TSH. No clear precipitating factors for tachycardia. Suspect recurrent afib from underlying severe Mitral regurgitation and Dilated Left atrium. Rate related ST depressions. Cycle troponin. Defer further ischemia work up to cardiology. Repeat lactate, Resume home lasix from this evening Renal function around baseline. Continue statin/ARB Hold glimepiride. ISS, diabetic diet. DVTPPX on eliquis (confirmed, patient on 2.5 mg BID per ) Dispo admit to obs. D/c in 24 hours if no new concerns or additional need for cardiac intervention. Plan discussed with patient, and family at bedside in detail, all questions answered. total admit time 55 min . Visit type - Emergency Visit Emergency Visit: Yes Care time: The patient presented to the Emergency Department on the above date and was hospitalized for further evaluation of their emergent condition. - New Patient This patient is new to me today: Yes Date on this admission: 02/05/19 - Critical Care Critical Care patient: No
[2019-02-05] MEDS ORDERED: ACETAMINOPHEN 325 MG TABLET (FP) PO PRN (09:28)
[2019-02-05] MEDS ORDERED: METOPROLOL TARTRATE 5 MG/5 ML VIAL IVPUSH PRN (09:38)
--- NOTE | 2019-02-05 09:52 | CON.CARD ---
Consult Consult Specialty:: cardio - History of Present Illness Chief Complaint: palpitations History of Present Illness: 78 M here with palpitations. felt heart racing/pounding since around 2am. home vitals monitor: normal BP, HR 150s. came to ER, with ekg showing SVT. sees dr cristobal for CHF/mitral regurg ([facility]) and dr argueta (EP) for AF treatment at [facility]. had afib ablation with ellie 2016. since then his sx's of AF (palpitations) improved--only feels shorter episodes on occasion. notes incr REYES with walking for 2 months or so. no leg swelling. no chest pain. admits to high intake of latin food take-out, doesn't watch sodium strictly. 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 No: Schizophrenia Rheumatology: Yes: Fibromyalgia Endocrine: Yes: Diabetes Mellitus. 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- History of Recent Travel: Yes (returned 02/04 from [facility]) Home Medications - Allergies Allergies/Adverse Reactions: Allergies Allergy/AdvReac Type Severity Reaction Status Date / Time No Known Drug Allergies Allergy Verified 02/05/19 06:39 - Home Medications Home Medications: Ambulatory Orders Metoprolol Tartrate [Lopressor] 100 mg PO BID 02/20/15 Simvastatin [Zocor -] 10 mg PO HS 02/20/15 Glimepiride [Glimepiride -] 1 mg PO DAILY #30 tablet 02/22/15 Acetaminophen [Tylenol] 500 mg PO QID PRN 03/29/17 Apixaban [Eliquis] 2.5 mg PO BID 03/29/17 Candesartan Cilexetil [Atacand (Nf) -] 4 mg PO DAILY 11/01/18 Amlodipine Besylate 5 mg PO DAILY 02/05/19 Furosemide [Lasix] 80 mg PO BID 02/05/19 Pantoprazole Sodium [Protonix] 40 mg PO DAILY 02/05/19 Family Disease History - Family Disease History Family Disease History: Heart Disease: Son (3 - two with HTN), CA: Mother (colon , ), Brother (prostate, ), Sister (stomach, uterine, ), Other: Father (dementia, ), Son, Daughter (1 - migraines) Review of Systems - Review of Systems Constitutional: denies: Chills, Fever Eyes: denies: Eye Pain HENT: denies: Nasal Congestion Neck: denies: Stiffness Cardiovascular: denies: Palpitations Respiratory: denies: Orthopnea, PND Gastrointestinal: denies: Diarrhea, Rectal Bleeding Genitourinary: denies: Burning, Hematuria Musculoskeletal: denies: Muscle Pain Integumentary: denies: Rash Neurological: denies: Numbness, Seizure, Syncope Endocrine: denies: Excessive Sweating Hematology/Lymphatic: denies: Excessive Bleeding Vital Signs: Vital Signs Temperature 98.5 F 02/05/19 06:20 Pulse Rate 62 02/05/19 08:20 Respiratory Rate 19 02/05/19 08:20 Blood Pressure 121/71 02/05/19 08:20 O2 Sat by Pulse Oximetry (%) 100 02/05/19 08:20 Constitutional: Yes: Well Nourished, No Distress Eyes: No: Sclera Icterus HENT: No: Nasal Congestion Neck: No: Decreased ROM Respiratory: Yes: CTA Bilaterally. No: Accessory Muscle Use, Rales, Wheezes Gastrointestinal: Yes: Normal Bowel Sounds. No: Distention, Hepatomegaly, Palpable Mass, Tenderness Cardiovascular: Yes: Regular Rate and Rhythm JVD: Yes Carotid Bruit: No PMI: Non-Displaced Heart Sounds: Yes: S1, S2. No: Gallop Murmur: No: Systolic Murmur, Diastolic Murmur Musculoskeletal: Yes: Other (No kyphosis) Extremities: No: Cold, Cyanosis Edema: No Peripheral Pulses: 2+ Left Carotid, 2+ Right Carotid, 2+ Left Doralis Pedis, 2+ Right Dorsalis Pedis Integumentary: No: Jaundice Neurological: Yes: Alert, Oriented (x3) Psychiatric: No: Agitated - Other Data Labs, Other Data: CBC, BMP 02/05/19 07:10 02/05/19 07:10 INR, PTT INR 1.03 (0.83-1.09) 02/05/19 07:10 Troponin, BNP 02/05/19 07:10 Troponin I < 0.02 Troponin, BNP 02/05/19 07:10 Troponin I < 0.02 Laboratory Tests 02/05/19 02/05/19 02/05/19 07:10 07:10 07:10 WBC 11.5 H Hgb 14.2 Plt Count 156 Sodium 138 Potassium 3.8 Carbon Dioxide 28 BUN 21 H Creatinine 2.2 H Lactic Acid 2.2 H* AST 13 L ALT 19 Troponin I < 0.02 Assessment/Plan Echo 2014 ([facility]): nl LV size and LVEF. nl RV. severe L/GUILLE. severe MR. mild-mod TR. RVSP 50-60. 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 ST depressions. mildly prolonged QT CXR: clear lungs/pleura tele: NSR with HR 50s Afib, PSVT: -previously treated with amio, now off per ER reported med list -s/p ablation 2016--sx's much improved. -presenting rhythm currently appears to have been short RP SVT--terminated after given diltiazem in ER -in sinus with HR 50s. -resume home metoprolol 100 bid -will d/w EP--cannot intensify AVN blockage given resting sinus bradycardia. ? anti-arrhythmic vs observe for recurrent sx's. -cont tele -on Eliquis 2.5 bid at home per EP, will turn 79 next month--cont AC per EP mgmt plan SOB, acute diast CHF, lactic acidosis: -admitted here with CHF 2014. at that time EF was normal and pt was on amiodarone for AF rhythm control. echo then showed severe MR. -since that time pt has not followed up locally--has been seeing dr cristobal at [facility] (cardiology). d/w'd dr cristobal: pt's MR has been medically managed. -no known underlying CAD per prior notes and reported cath. -? last echo--will check [facility] records later today or tomorrow -here with SOB, lactate mildly elevated. CXR clear/no effusions. but + JVD. -on lasix 80 po bid at home. -start lasix 80 IV QD today--monitor wt, JVD and renal fxn tomorrow CKD: -baseline creat previous admits 1.8-2.6 -renal fxn stable here HTN: -bp controlled -cont home meds DM: -per hospitalist [facility]ED[facility]: -outpt f/u
[2019-02-05] MEDS: METOPROLOL TARTRATE 50 MG TABLET (FP) PO SCH ×2 (10:31→22:15)
--- NOTE | 2019-02-05 11:00 | EKG ---
Test Reason : Blood Pressure : / mmHG Vent. Rate : 058 BPM Atrial Rate : 058 BPM P-R Int : 200 ms QRS Dur : 076 ms QT Int : 432 ms P-R-T Axes : -19 002 003 degrees QTc Int : 424 ms SINUS BRADYCARDIA SEPTAL INFARCT , AGE UNDETERMINED ABNORMAL ECG WHEN COMPARED WITH ECG OF 05-FEB-2019 06:40, VENT. RATE HAS DECREASED BY [address] NO LONGER DEPRESSED IN INFERIOR LEADS ST NO LONGER DEPRESSED IN LATERAL LEADS Confirmed by MD MAISHA, GUY ([id number]) on 02/05/2019 11:00:09 AM Referred By: Confirmed By:GUY FERRERA MD
--- NOTE | 2019-02-05 11:04 | EKG ---
Test Reason : Blood Pressure : / mmHG Vent. Rate : 148 BPM Atrial Rate : 148 BPM P-R Int : 124 ms QRS Dur : 090 ms QT Int : 306 ms P-R-T Axes : 000 053 102 degrees QTc Int : 480 ms Possible atrial flutter with 2:[address] ABNORMALITY, POSSIBLE INFERIOR SUBENDOCARDIAL INJURY ABNORMAL ECG WHEN COMPARED WITH ECG OF 02-MAR-2017 19:43, VENT. RATE HAS INCREASED BY [address] NOW DEPRESSED IN INFERIOR LEADS ST NOW DEPRESSED IN LATERAL LEADS NONSPECIFIC T WAVE ABNORMALITY NOW EVIDENT IN INFERIOR LEADS T WAVE AMPLITUDE HAS INCREASED IN ANTERIOR LEADS NONSPECIFIC T WAVE ABNORMALITY NOW EVIDENT IN LATERAL LEADS Confirmed by MD MAISHA, GUY ([id number]) on 02/05/2019 11:03:46 AM Referred By: Confirmed By:GUY FERRERA MD
[2019-02-05] MEDS ORDERED: PANTOPRAZOLE 40 MG TABLET (FP) ONE (11:13)
[2019-02-05] MEDS: APIXABAN 2.5 MG TABLET PO SCH ×2 (11:16→22:13)
[2019-02-05] MEDS: PANTOPRAZOLE 40 MG TABLET (FP) PO SCH (11:16)
[2019-02-05] MEDS: INSULIN SLIDING SCALE (NOVOLOG) 1 VIAL SQ SCH ×4 (11:17→22:14)
[2019-02-05] MEDS ORDERED: FUROSEMIDE 40 MG/4 ML INJECTABLE VIAL IVPUSH ONE (12:00)
[2019-02-05] MEDS ORDERED: FUROSEMIDE 40 MG/4 ML INJECTABLE VIAL ONE (13:22)
[2019-02-05] MEDS ORDERED: FUROSEMIDE 40 MG TABLET (FP) PO SCH (14:00)
[2019-02-05 14:05] VITALS: BMI 30.9
[2019-02-05] MEDS: ATORVASTATIN CA 10 MG TABLET (FP) PO SCH (22:13)
[2019-02-06] MEDS: INSULIN SLIDING SCALE (NOVOLOG) 1 VIAL SQ SCH ×4 (07:00→22:45)
[2019-02-06 07:08] LABS: BASO % 0.3 % (0-2.0); EOS % 2.6 % (0-4.5); HEMOGLOBIN 12.7 GM/dL (11.7-16.9); LYMPH % 43.7 % (8-40); MCH 29.8 pg (25.7-33.7); MCHC 34.2 g/dl (32.0-35.9); MEAN PLT VOLUME 8.3 fl (7.5-11.1); MONO % 6.5 % (3.8-10.2); NEUT % 46.9 % (42.8-82.8); PLATELET COUNT 135 K/MM3 (134-434); RBC 4.26 M/mm3 (4.00-5.60); RDW 14.1 % (11.9-15.9); WHITE BLOOD COUNT 7.3 K/mm3 (4.0-10.0)
[2019-02-06 07:49] LABS: ALBUMIN 3.4 g/dl (3.4-5.0); ALK PHOS 78 U/L (45-117); ANION GAP 7 MMOL/L (8-16); BILIRUBIN,TOTAL 0.6 mg/dL (0.2-1); BLOOD UREA NITROGEN 25 mg/dL (7-18); CALCIUM 8.8 mg/dL (8.5-10.1); CHLORIDE 107 mmol/L (98-107); CHOLESTEROL 127 mg/dL (50-200); CO2 26 mmol/L (21-32); GLUCOSE,RANDOM 104 mg/dL (74-106); HDL CHOLESTEROL 39 mg/dL (40-60); MAGNESIUM 2.5 mg/dL (1.8-2.4); PHOSPHOROUS 3.4 mg/dL (2.5-4.9); POTASSIUM 3.8 mmol/L (3.5-5.1); SGOT/AST 11 U/L (15-37); SGPT/ALT 16 U/L (13-61); SODIUM 139 mmol/L (136-145); TOT PROT 7.2 g/dl (6.4-8.2); TRIGLYCERIDES 74 mg/dL (0-150)
--- NOTE | 2019-02-06 09:25 | PN ---
Teaching Attending Note Name of Resident: Arelis Bernal ATTENDING PHYSICIAN STATEMENT I saw and evaluated the patient. I reviewed the resident's note and discussed the case with the resident. I agree with the resident's findings and plan as documented with exceptions below. SUBJECTIVE: Patient seen and examined. No complaints overnight. OBJECTIVE: Vital Signs Period Temp Pulse Resp BP Sys/Thurman Pulse Ox Last 24 Hr 97.5 F-98.8 F 54-62 17-20 117-139/61-73 97-98 Intake & Output 02/03/19 02/04/19 02/05/19 02/06/19 23:59 23:59 23:59 23:59 Intake Total 600 10 Balance 600 10 Weight 203 lb 3.2 oz 198 lb 3.2 oz General: sitting in bed in no acute distress Neck: soft, supple, no JVD visualized Chest: CTAB, no rales or wheezing CVS:S1S2 regular Abdomen:Soft, NT, ND Extremities: no pedal edema Home Medications Medication Instructions Recorded Metoprolol Tartrate [Lopressor] 100 mg PO BID 02/20/15 Simvastatin [Zocor -] 10 mg PO HS 02/20/15 Glimepiride [Glimepiride -] 1 mg PO DAILY #30 tablet 02/22/15 Acetaminophen [Tylenol] 500 mg PO QID PRN 03/29/17 Apixaban [Eliquis] 2.5 mg PO BID 03/29/17 Candesartan Cilexetil [Atacand 4 mg PO DAILY 11/01/18 (Nf) -] Amlodipine Besylate 5 mg PO DAILY 02/05/19 Furosemide [Lasix] 80 mg PO BID 02/05/19 Pantoprazole Sodium [Protonix] 40 mg PO DAILY 02/05/19 Active Medications Acetaminophen (Tylenol -) 650 mg PO Q6H PRN PRN Reason: HEADACHE Apixaban (Eliquis -) 2.5 mg PO BID [facility] Last Admin: 02/05/19 22:13 Dose: 2.5 mg Atorvastatin Calcium (Lipitor -) 10 mg PO [facility] Last Admin: 02/05/19 22:13 Dose: 10 mg Insulin Aspart (Novolog Vial Sliding Scale -) 1 vial SQ [facility]; Protocol Last Admin: 02/05/19 22:14 Dose: Not Given Metoprolol Tartrate (Lopressor -) 100 mg PO BID [facility] Last Admin: 02/05/19 22:15 Dose: Not Given Metoprolol Tartrate (Lopressor Injection -) 5 mg IVPUSH Q4H PRN PRN Reason: TACHYCARDIA Non-Formulary Medication (Furosemide [Lasix]) 80 mg PO BID [facility] Pantoprazole Sodium (Protonix -) 40 mg PO DAILY [facility] Last Admin: 02/05/19 11:16 Dose: 40 mg Laboratory Results - last 24 hr 02/05/19 02/05/19 02/05/19 06:43 07:10 12:21 WBC RBC Hgb Hct MCV MCH MCHC RDW Plt Count MPV Absolute Neuts (auto) Neutrophils % Lymphocytes % Monocytes % Eosinophils % Basophils % Nucleated RBC % PTT (Actin FS) 28.7 Sodium 138 Potassium 3.8 Chloride 104 Carbon Dioxide 28 Anion Gap 6 L BUN 21 H Creatinine 2.2 H Creat Clearance w eGFR 29.02 POC Glucometer Random Glucose 149 H Lactic Acid 1.4 Calcium 9.0 Phosphorus Magnesium 2.5 H Total Bilirubin 0.4 AST 13 L ALT 19 Alkaline Phosphatase 91 Creatine Kinase 106 Troponin I < 0.02 Total Protein 8.3 H Albumin 3.9 Triglycerides Cholesterol Total LDL Cholesterol HDL Cholesterol TSH 1.32 02/05/19 02/05/19 02/05/19 12:21 16:29 22:11 WBC RBC Hgb Hct MCV MCH MCHC RDW Plt Count MPV Absolute Neuts (auto) Neutrophils % Lymphocytes % Monocytes % Eosinophils % Basophils % Nucleated RBC % PTT (Actin FS) Sodium Potassium Chloride Carbon Dioxide Anion Gap BUN Creatinine Creat Clearance w eGFR POC Glucometer 121 112 Random Glucose Lactic Acid Calcium Phosphorus Magnesium Total Bilirubin AST ALT Alkaline Phosphatase Creatine Kinase Troponin I < 0.02 Total Protein Albumin Triglycerides Cholesterol Total LDL Cholesterol HDL Cholesterol TSH 02/06/19 02/06/19 06:35 06:35 WBC 7.3 RBC 4.26 Hgb 12.7 Hct 37.0 MCV 87.0 MCH 29.8 MCHC 34.2 RDW 14.1 Plt Count 135 MPV 8.3 Absolute Neuts (auto) 3.4 Neutrophils % 46.9 Lymphocytes % 43.7 H Monocytes % 6.5 Eosinophils % 2.6 D Basophils % 0.3 Nucleated RBC % 0 PTT (Actin FS) Sodium 139 Potassium 3.8 Chloride 107 Carbon Dioxide 26 Anion Gap 7 L BUN 25 H Creatinine 2.0 H Creat Clearance w eGFR 32.39 POC Glucometer Random Glucose 104 Lactic Acid Calcium 8.8 Phosphorus 3.4 Magnesium 2.5 H Total Bilirubin 0.6 AST 11 L ALT 16 Alkaline Phosphatase 78 Creatine Kinase Troponin I Total Protein 7.2 Albumin 3.4 Triglycerides 74 Cholesterol 127 Total LDL Cholesterol 78 HDL Cholesterol 39 L TSH Telemetry: NSR ASSESSMENT AND PLAN: 78 yom with PMHx of PAf on Eliquis/Amiodarone, s/p ablation 2 years ago, Non obstructive CAD, severe mitral regurgitation, diastolic Heart failure, HTN, HLD , NIDDM, CKD stage II (baseline Cr around 2), [place], Prostate cancer 1998 s/p surgery, history of GI ulcer and GI polyp, history of rod arrest during anesthesia induction for endoscopy admitted with Afib with RVR -Atrial fibrillation with RVR, now in NSR -S/p reported ablation 2 years ago -Non obstructive CAD -Severe mitral regurgitation -Diastolic Heart failure -HTN -HLD -NIDDM -CKD stage II (Baseline creatinine around 2) -[facility] -Prostate cancer 1998 s/p surgery -H/o GI ulcer/Polyp -h/o rod arrest during anesthesia induction for endoscopy Plan: Continues to be in NSR. Cardiology input appreciated Follow up 2D echo TSH noted. Suspect recurrent afib from underlying severe Mitral regurgitation and Dilated Left atrium. Continue metoprolol. Rate related ST depressions. Trop neg. Defer further ischemia work up to cardiology, anticipate outpatient. Lactic acidosis resolved. Resume home lasix at 80 mg BID. Renal function around baseline. Continue statin/ARB Hold glimepiride. ISS, diabetic diet. DVTPPX on eliquis Dispo d/c home today pending 2Decho if cleared by cardiology. Plan discussed with patient, and family at bedside in detail, all questions answered.
[2019-02-06] MEDS ORDERED: FUROSEMIDE 40 MG TABLET (FP) PO SCH (10:00)
--- NOTE | 2019-02-06 10:34 | PN ---
Progress Note, Physician Chief Complaint: palpitations History of Present Illness: no more palpitations no sob in bed/oob to bathroom, no orthopnea no cp no leg swelling no cigs - Current Medication List Current Medications: Active Medications Acetaminophen (Tylenol -) 650 mg PO Q6H PRN PRN Reason: HEADACHE Apixaban (Eliquis -) 2.5 mg PO BID [facility] Last Admin: 02/05/19 22:13 Dose: 2.5 mg Atorvastatin Calcium (Lipitor -) 10 mg PO HS [facility] Last Admin: 02/05/19 22:13 Dose: 10 mg Furosemide (Lasix -) 80 mg PO BID@0600,1800 [facility] Insulin Aspart (Novolog Vial Sliding Scale -) 1 vial SQ ACHS [facility]; Protocol Last Admin: 02/05/19 22:14 Dose: Not Given Metoprolol Tartrate (Lopressor -) 100 mg PO BID [facility] Last Admin: 02/05/19 22:15 Dose: Not Given Metoprolol Tartrate (Lopressor Injection -) 5 mg IVPUSH Q4H PRN PRN Reason: TACHYCARDIA Pantoprazole Sodium (Protonix -) 40 mg PO DAILY [facility] Last Admin: 02/05/19 11:16 Dose: 40 mg - Objective Vital Signs: Vital Signs Temperature 97.5 F L 02/06/19 05:00 Pulse Rate 62 02/06/19 05:00 Respiratory Rate 18 02/06/19 05:00 Blood Pressure 133/73 02/06/19 05:00 O2 Sat by Pulse Oximetry (%) 97 02/05/19 21:00 Constitutional: Yes: No Distress, Calm Eyes: No: Sclera Icterus HENT: No: Nasal Congestion Cardiovascular: Yes: Regular Rate and Rhythm, JVD (mild), S1, S2, Other (PMI non diplaced). No: Gallop, Murmur Respiratory: Yes: CTA Bilaterally. No: Accessory Muscle Use, Rales, Wheezes Gastrointestinal: Yes: Normal Bowel Sounds, Soft. No: Tenderness Musculoskeletal: Yes: Other (No kyphosis) Extremities: No: Cold, Cyanosis Edema: No Integumentary: No: Jaundice Neurological: Yes: Alert, Oriented (x3) Psychiatric: No: Agitated Labs: CBC, BMP 02/06/19 06:35 02/06/19 06:35 INR, PTT INR 1.03 (0.83-1.09) 02/05/19 07:10 Assessment/Plan Echo 2014 ([facility]): nl LV size and LVEF. nl RV. severe L/GUILLE. severe MR. mild-mod TR. RVSP 50-60. 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 ST depressions. mildly prolonged QT CXR: clear lungs/pleura tele: NSR with HR rarely 50s, mostly 70s. artifact. Afib, PSVT: -previously treated with amio, now off per ER reported med list -s/p ablation 2016--sx's much improved. -presenting rhythm currently appears to have been short RP SVT--terminated after given diltiazem in ER -in sinus with HR 50s. -resume home metoprolol 100 bid -d/w'd EP--plan is to continue current meds and have office f/u with EP for ? EPS/SVT ablation -cont tele -on Eliquis 2.5 bid at home per EP, will turn 79 next month--cont AC per EP mgmt plan acute diast CHF: -preserved LVEF as of echo here 2014 -no h/o CAD including benign cath 2014 (done for CHF) -here with kevin BenitezTTory (1 block) for couple of months, signs of mild volume overload. -on lasix 80 po bid at home.-->started lasix 80 IV QD on 02/05 -02/06: pt reports signif diuresis response to iv lasix yesterday. wt down 5 lbs , renal fxn stable. repeat lasix 80 IV x1 today -check echo today CKD: -baseline creat previous admits 1.8-2.6 -renal fxn stable here HTN: -bp controlled -cont home meds DM: -per hospitalist [facility]: -outpt f/u
[2019-02-06] MEDS: APIXABAN 2.5 MG TABLET PO SCH ×2 (10:58→22:41)
[2019-02-06] MEDS: PANTOPRAZOLE 40 MG TABLET (FP) PO SCH (10:59)
[2019-02-06] MEDS: METOPROLOL TARTRATE 50 MG TABLET (FP) PO SCH ×2 (11:00→22:41)
[2019-02-06] MEDS ORDERED: FUROSEMIDE 40 MG/4 ML INJECTABLE VIAL IVPUSH ONE (11:38)
--- NOTE | 2019-02-06 14:59 | ECHO ---
Name: KATHIA QUINN Exam:Adult Echocardiogram Study Date: 02/06/2019 07:47 AM Age: 78 yrs Reason For Study: a fib,severe mitral regurgitation Height: 68 in Weight: 195 lb BSA: 2.0 m2 MMode/2D Measurements & Calculations IVSd: 0.71 cm Ao root diam: 4.0 cm LVIDd: 5.5 cm LA dimension: 5.2 cm LVIDs: 4.1 cm ACS: 1.7 cm LVPWd: 1.1 cm IVSs: 1.5 cm LVPWs: 1.2 cm EDV(Teich): 146.0 ml ESV(Teich): 72.7 ml Doppler Measurements & Calculations MV E max césar: 49.6 cm/sec Ao V2 max: 134.8 cm/sec MV A max césar: 48.6 cm/sec Ao max P.3 mmHg MV E/A: 1.0 Ao V2 mean: 95.0 cm/sec Ao mean P.9 mmHg Ao V2 VTI: 27.1 cm AI P1/2t: 691.3 msec AI max césar: 504.9 cm/sec MR max césar: 520.7 cm/sec AI max P.0 mmHg MR max P.5 mmHg AI dec slope: 213.9 cm/sec2 Med Peak E' Césra: 3.6 cm/sec Med E/e': 13.8 Lat Peak E' César: 6.2 cm/sec Lat E/e': 8.0 Procedure A complete two-dimensional transthoracic echocardiogram was performed (2D, M-mode, Doppler and color flow Doppler). Left Ventricle The left ventricle is normal in size. Left ventricular systolic function is normal. Ejection Fraction = 55- 60%. Grade I diastolic dysfunction, (abnormal relaxation pattern). Ratio E/E'= 13. No regional wall m otion abnormalities noted. Right Ventricle The right ventricle is normal size. The right ventricular systolic function is normal. Atria The left atrial size is normal. Right atrial size is normal. Mitral Valve There is mild mitral annular calcification. There is mild to moderate mitral regurgitation. Tricuspid Valve The tricuspid valve is normal in structure and function. No tricuspid regurgitation. Aortic Valve There is mild aortic sclerosis.;. Mild to moderate aortic regurgitation. Pulmonic Valve The pulmonic valve is not well visualized. Great Vessels The aortic root is normal size. Pericardium/Pleura There is no pericardial effusion. Interpretation Summary The left ventricle is normal in size. Left ventricular systolic function is normal. No regional wall motion abnormalities noted. Ejection Fraction = 55-60%. Grade I diastolic dysfunction, (abnormal relaxation pattern). Ratio E/E'= 13 The right ventricular systolic function is normal. The left atrial size is normal. Right atrial size is normal. There is mild mitral annular calcification. There is mild to moderate mitral regurgitation. There is mild aortic sclerosis. Mild to moderate aortic regurgitation. There is no pericardial effusion. Previous study is not available for comparison Derek Lagunas MD 02/06/2019 02:57 PM
--- NOTE | 2019-02-06 16:53 | HP ---
CHIEF COMPLAINT: PCP: HISTORY OF PRESENT ILLNESS: ER course was notable for: (1) (2) (3) Recent Travel: PAST MEDICAL HISTORY: PAST SURGICAL HISTORY: Social History: Smoking: Alcohol: Drugs: Family History: Allergies No Known Drug Allergies Allergy (Verified 02/05/19 06:39) HOME MEDICATIONS: Home Medications Medication Instructions Recorded Metoprolol Tartrate [Lopressor] 100 mg PO BID 02/20/15 Simvastatin [Zocor -] 10 mg PO HS 02/20/15 Glimepiride [Glimepiride -] 1 mg PO DAILY #30 tablet 02/22/15 Acetaminophen [Tylenol] 500 mg PO QID PRN 03/29/17 Apixaban [Eliquis] 2.5 mg PO BID 03/29/17 Candesartan Cilexetil [Atacand 4 mg PO DAILY 11/01/18 (Nf) -] Amlodipine Besylate 5 mg PO DAILY 02/05/19 Furosemide [Lasix] 80 mg PO BID 02/05/19 Pantoprazole Sodium [Protonix] 40 mg PO DAILY 02/05/19 REVIEW OF SYSTEMS CONSTITUTIONAL: Absent: fever, chills, diaphoresis, generalized weakness, malaise, loss of appetite, weight change HEENT: Absent: rhinorrhea, nasal congestion, throat pain, throat swelling, difficulty swallowing, mouth swelling, ear pain, eye pain, visual changes CARDIOVASCULAR: Absent: chest pain, syncope, palpitations, irregular heart rate, lightheadedness , peripheral edema RESPIRATORY: Absent: cough, shortness of breath, dyspnea with exertion, orthopnea, wheezing, stridor, hemoptysis GASTROINTESTINAL: Absent: abdominal pain, abdominal distension, nausea, vomiting, diarrhea, constipation, melena, hematochezia GENITOURINARY: Absent: dysuria, frequency, urgency, hesitancy, hematuria, flank pain, genital pain MUSCULOSKELETAL: Absent: myalgia, arthralgia, joint swelling, back pain, neck pain SKIN: Absent: rash, itching, pallor HEMATOLOGIC/IMMUNOLOGIC: Absent: easy bleeding, easy bruising, lymphadenopathy, frequent infections ENDOCRINE: Absent: unexplained weight gain, unexplained weight loss, heat intolerance, cold intolerance NEUROLOGIC: Absent: headache, focal weakness or paresthesias, dizziness, unsteady gait, seizure, mental status changes, bladder or bowel incontinence PSYCHIATRIC: Absent: anxiety, depression, suicidal or homicidal ideation, hallucinations. PHYSICAL EXAMINATION Vital Signs - 24 hr 02/05/19 02/05/19 02/06/19 17:00 21:00 05:00 Temperature 98.8 F 98.1 F 97.5 F L Pulse Rate 56 L 54 L 62 Respiratory 20 20 18 Rate Blood Pressure 128/64 139/61 133/73 O2 Sat by Pulse 97 98 Oximetry (%) 02/06/19 02/06/19 09:00 14:00 Temperature 98.7 F Pulse Rate 60 76 Respiratory 18 20 Rate Blood Pressure 142/73 120/73 O2 Sat by Pulse Oximetry (%) GENERAL: Awake, alert, and fully oriented, in no acute distress. HEAD: Normal with no signs of trauma. EYES: Pupils equal, round and reactive to light, extraocular movements intact, sclera anicteric, conjunctiva clear. No lid lag. EARS, NOSE, THROAT: Ears normal, nares patent, oropharynx clear without exudates. Moist mucous membranes. NECK: Normal range of motion, supple without lymphadenopathy, JVD, or masses. LUNGS: Breath sounds equal, clear to auscultation bilaterally. No wheezes, and no crackles. No accessory muscle use. HEART: Regular rate and rhythm, normal S1 and S2 without murmur, rub or gallop. ABDOMEN: Soft, nontender, not distended, normoactive bowel sounds, no guarding, no rebound, no masses. No hepatomegaly or splenomegaly. MUSCULOSKELETAL: Normal range of motion at all joints. No bony deformities or tenderness. No CVA tenderness. UPPER EXTREMITIES: 2+ pulses, warm, well-perfused. No cyanosis. No clubbing. No peripheral edema. LOWER EXTREMITIES: 2+ pulses, warm, well-perfused. No calf tenderness. No peripheral edema. NEUROLOGICAL: Cranial nerves II-XII intact. Normal speech. Normal gait. PSYCHIATRIC: Cooperative. Good eye contact. Appropriate mood and affect. SKIN: Warm, dry, normal turgor, no rashes or lesions noted, normal capillary refill. Laboratory Results - last 24 hr 02/05/19 02/06/19 02/06/19 22:11 06:35 06:35 WBC 7.3 RBC 4.26 Hgb 12.7 Hct 37.0 MCV 87.0 MCH 29.8 MCHC 34.2 RDW 14.1 Plt Count 135 MPV 8.3 Absolute Neuts (auto) 3.4 Neutrophils % 46.9 Lymphocytes % 43.7 H Monocytes % 6.5 Eosinophils % 2.6 D Basophils % 0.3 Nucleated RBC % 0 Sodium 139 Potassium 3.8 Chloride 107 Carbon Dioxide 26 Anion Gap 7 L BUN 25 H Creatinine 2.0 H Creat Clearance w eGFR 32.39 POC Glucometer 112 Random Glucose 104 Calcium 8.8 Phosphorus 3.4 Magnesium 2.5 H Total Bilirubin 0.6 AST 11 L ALT 16 Alkaline Phosphatase 78 Total Protein 7.2 Albumin 3.4 Triglycerides 74 Cholesterol 127 Total LDL Cholesterol 78 HDL Cholesterol 39 L 02/06/19 12:43 WBC RBC Hgb Hct MCV MCH MCHC RDW Plt Count MPV Absolute Neuts (auto) Neutrophils % Lymphocytes % Monocytes % Eosinophils % Basophils % Nucleated RBC % Sodium Potassium Chloride Carbon Dioxide Anion Gap BUN Creatinine Creat Clearance w eGFR POC Glucometer 135 Random Glucose Calcium Phosphorus Magnesium Total Bilirubin AST ALT Alkaline Phosphatase Total Protein Albumin Triglycerides Cholesterol Total LDL Cholesterol HDL Cholesterol ASSESSMENT/PLAN: ASSESSMENT AND PLAN: 78 yom with PMHx of PAf on Eliquis/Amiodarone, s/p ablation 2 years ago, Non obstructive CAD, severe mitral regurgitation, diastolic Heart failure, HTN, HLD , NIDDM, CKD stage II (baseline Cr around 2), [facility], Prostate cancer 1998 s/p surgery, history of GI ulcer and GI polyp, history of rod arrest during anesthesia induction for endoscopy admitted with Afib with RVR -Atrial fibrillation with RVR, now in NSR -S/p reported ablation 2 years ago -Non obstructive CAD -Severe mitral regurgitation -Diastolic Heart failure -HTN -HLD -NIDDM -CKD stage II (Baseline creatinine around 2) -[facility] -Prostate cancer 1998 s/p surgery -H/o GI ulcer/Polyp -h/o rod arrest during anesthesia induction for endoscopy Plan: Continues to be in NSR. Cardiology input appreciated Follow up 2D echo TSH noted. Suspect recurrent afib from underlying severe Mitral regurgitation and Dilated Left atrium. Continue metoprolol. Rate related ST depressions. Trop neg. Defer further ischemia work up to cardiology, anticipate outpatient. Lactic acidosis resolved. Resume home lasix at 80 mg BID. Renal function around baseline. Continue statin/ARB Hold glimepiride. ISS, diabetic diet. DVTPPX on eliquis Dispo d/c home today pending 2Decho if cleared by cardiology. Plan discussed with patient, and family at bedside in detail, all questions answered.
--- NOTE | 2019-02-06 16:59 | PN ---
Physical Exam: SUBJECTIVE: Patient seen and examined; no current complaints; denies cp, sob, palpitations OBJECTIVE: Vital Signs Period Temp Pulse Resp BP Sys/Thurman Pulse Ox Last 24 Hr 97.5 F-98.8 F 54-76 18-20 120-142/61-73 97-98 GENERAL: The patient is awake, alert, and fully oriented, in no acute distress. LUNGS: Breath sounds equal, clear to auscultation bilaterally, no wheezes, no crackles, no accessory muscle use. HEART: Regular rate and rhythm, S1, S2 without murmur, rub or gallop. ABDOMEN: Soft, nontender, nondistended, normoactive bowel sounds, no guarding, no rebound, no hepatosplenomegaly, no masses. Laboratory Results - last 24 hr 02/05/19 02/06/19 02/06/19 22:11 06:35 06:35 WBC 7.3 RBC 4.26 Hgb 12.7 Hct 37.0 MCV 87.0 MCH 29.8 MCHC 34.2 RDW 14.1 Plt Count 135 MPV 8.3 Absolute Neuts (auto) 3.4 Neutrophils % 46.9 Lymphocytes % 43.7 H Monocytes % 6.5 Eosinophils % 2.6 D Basophils % 0.3 Nucleated RBC % 0 Sodium 139 Potassium 3.8 Chloride 107 Carbon Dioxide 26 Anion Gap 7 L BUN 25 H Creatinine 2.0 H Creat Clearance w eGFR 32.39 POC Glucometer 112 Random Glucose 104 Calcium 8.8 Phosphorus 3.4 Magnesium 2.5 H Total Bilirubin 0.6 AST 11 L ALT 16 Alkaline Phosphatase 78 Total Protein 7.2 Albumin 3.4 Triglycerides 74 Cholesterol 127 Total LDL Cholesterol 78 HDL Cholesterol 39 L 02/06/19 12:43 WBC RBC Hgb Hct MCV MCH MCHC RDW Plt Count MPV Absolute Neuts (auto) Neutrophils % Lymphocytes % Monocytes % Eosinophils % Basophils % Nucleated RBC % Sodium Potassium Chloride Carbon Dioxide Anion Gap BUN Creatinine Creat Clearance w eGFR POC Glucometer 135 Random Glucose Calcium Phosphorus Magnesium Total Bilirubin AST ALT Alkaline Phosphatase Total Protein Albumin Triglycerides Cholesterol Total LDL Cholesterol HDL Cholesterol Active Medications Generic Name Dose Route Start Last Admin Trade Name Freq PRN Reason Stop Dose Admin Acetaminophen 650 mg 02/05/19 09:28 Tylenol - PO Q6H PRN HEADACHE Apixaban 2.5 mg 02/05/19 10:00 02/06/19 10:58 Eliquis - PO 2.5 mg BID [facility] Administration Atorvastatin Calcium 10 mg 02/05/19 22:00 02/05/19 22:13 Lipitor - PO 10 mg HS [facility] Administration Insulin Aspart 1 vial 02/05/19 11:00 02/06/19 12:49 Novolog Vial Sliding Scale - SQ Not Given ACHS [facility] Protocol Metoprolol Tartrate 100 mg 02/05/19 10:00 02/06/19 11:00 Lopressor - PO 100 mg BID [facility] Administration Metoprolol Tartrate 5 mg 02/05/19 09:38 Lopressor Injection - IVPUSH Q4H PRN TACHYCARDIA Pantoprazole Sodium 40 mg 02/05/19 10:00 02/06/19 10:59 Protonix - PO 40 mg DAILY [facility] Administration ASSESSMENT/PLAN: This is a 78 year old male with history of paroxysmal atrial fibrillation on eliquis, s/p ablation, CAD, Mitral regurg, dCHF, HTN, HLD, DM, CKD stage II, [facility] < prostate ca, hx GI ulcer, hx of rod arrest s/p anesthesia induction for endoscopy, here with atrial fibrillation with RVR. #atrial fibrillation with RVR -converted to NSR -previously treated with amnio -rate control with metoprolol 100mg bid -ac on eliquis -as per cardio; discussions with EP; plan to cont current medication and have f/ u in office fr EPS/SVT ablation #aute diastolic chf -echo today with preserved EF; mod dilated left atrium -on IV lasix -daily wts, I/O , monitor electrolytes #CKD 3: -at baseline #HTN #HLD #[facility] #dvt pl on eliquis Visit type - Emergency Visit Emergency Visit: Yes ED Registration Date: 02/05/19 Care time: The patient presented to the Emergency Department on the above date and was hospitalized for further evaluation of their emergent condition. - New Patient This patient is new to me today: Yes Date on this admission: 02/06/19 - Critical Care Critical Care patient: No
[2019-02-06] MEDS: ATORVASTATIN CA 10 MG TABLET (FP) PO SCH (22:41)
[2019-02-07] MEDS: INSULIN SLIDING SCALE (NOVOLOG) 1 VIAL SQ SCH ×2 (06:41→12:08)
[2019-02-07 07:22] LABS: ANION GAP 8 MMOL/L (8-16); BLOOD UREA NITROGEN 31 mg/dL (7-18); CALCIUM 8.8 mg/dL (8.5-10.1); CHLORIDE 105 mmol/L (98-107); CO2 26 mmol/L (21-32); CREATININE 2.1 mg/dL (0.55-1.3); GLUCOSE,RANDOM 105 mg/dL (74-106); MAGNESIUM 2.5 mg/dL (1.8-2.4); PHOSPHOROUS 3.8 mg/dL (2.5-4.9); POTASSIUM 3.8 mmol/L (3.5-5.1); SODIUM 140 mmol/L (136-145)
--- NOTE | 2019-02-07 10:18 | PN ---
Progress Note (short form) - Note Progress Note: Chief Complaint: palpitations History of Present Illness: feels well, walked around the halls yesterday without dyspnea and no orthopnea, edema. wants to go home Current Medications Acetaminophen (Tylenol -) 650 mg PO Q6H PRN PRN Reason: HEADACHE Apixaban (Eliquis -) 2.5 mg PO BID [facility] Last Admin: 02/07/19 10:19 Dose: 2.5 mg Atorvastatin Calcium (Lipitor -) 10 mg PO HS [facility] Last Admin: 02/06/19 22:41 Dose: 10 mg Furosemide (Lasix -) 80 mg PO ONCE ONE Stop: 02/07/19 11:33 Insulin Aspart (Novolog Vial Sliding Scale -) 1 vial SQ ACHS [facility]; Protocol Last Admin: 02/07/19 06:41 Dose: Not Given Metoprolol Tartrate (Lopressor -) 100 mg PO BID [facility] Last Admin: 02/07/19 10:19 Dose: 100 mg Metoprolol Tartrate (Lopressor Injection -) 5 mg IVPUSH Q4H PRN PRN Reason: TACHYCARDIA Pantoprazole Sodium (Protonix -) 40 mg PO DAILY [facility] Last Admin: 02/07/19 10:19 Dose: 40 mg - Objective Vital Signs Period Temp Pulse Resp BP Sys/Thurman Pulse Ox Last 24 Hr 98.1 F-98.7 F 32-76 18-20 113-141/73-79 98 Constitutional: Yes: No Distress, Calm Eyes: No: Sclera Icterus HENT: No: Nasal Congestion Cardiovascular: Yes: Regular Rate and Rhythm, S1, S2, Other (PMI non diplaced). No: Gallop, Murmur, JVD Respiratory: Yes: CTA Bilaterally. No: Accessory Muscle Use, Rales, Wheezes Gastrointestinal: Yes: Normal Bowel Sounds, Soft. No: Tenderness Musculoskeletal: Yes: Other (No kyphosis) Extremities: No: Cold, Cyanosis Edema: No Integumentary: No: Jaundice Neurological: Yes: Alert, Oriented (x3) Psychiatric: No: Agitated Assessment/Plan Echo 2014 ([facility]): nl LV size and LVEF. nl RV. severe L/GUILLE. severe MR. mild-mod TR. RVSP 50-60. 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 ST depressions. mildly prolonged QT CXR: clear lungs/pleura echo 01/2019 nl LV/RV function, grade I diastolic dysfunction, mild MAC, mild to mod MR, mild ao sclerosis, mild to mod AR tele: NSR with HR rarely 50s, mostly 70s. artifact. Afib, PSVT: -previously treated with amio, now off per ER reported med list -s/p ablation 2016--sx's much improved -presenting rhythm currently appears to have been short RP SVT--terminated after given diltiazem in ER -in sinus with HR 50s. -cont home metoprolol 100 bid -per Dr. Donahue d/w'd EP--plan is to continue current meds and have office f/u with EP for ? EPS/SVT ablation -cont tele -on Eliquis 2.5 bid at home per EP, will turn 79 next month--cont AC per EP mgmt plan acute diast CHF: -preserved LVEF as of echo here 2014 -no h/o CAD including benign cath 2014 (done for CHF) -here with decr E.T. (1 block) for couple of months, signs of mild volume overload. -on lasix 80 po bid at home.-->started lasix 80 IV QD on 02/05 -02/06: pt reports signif diuresis response to iv lasix yesterday. wt down 5 lbs , renal fxn stable. repeat lasix 80 IV x1 today -02/07: wt dec 2 lbs, Cr stable, asymptomatic. Transition to home dose of lasix , 80 mg PO BID -nl LV function on echo - stable for dc from cardiac perspective CKD: -baseline creat previous admits 1.8-2.6 -renal fxn stable here HTN: -bp controlled -cont home meds DM: -per hospitalist [facility]: -outpt f/u
[2019-02-07] MEDS: METOPROLOL TARTRATE 50 MG TABLET (FP) PO SCH (10:19)
[2019-02-07] MEDS: PANTOPRAZOLE 40 MG TABLET (FP) PO SCH (10:19)
[2019-02-07] MEDS: APIXABAN 2.5 MG TABLET PO SCH (10:19)
--- NOTE | 2019-02-07 11:28 | DS ---
Physical Exam: SUBJECTIVE: Patient seen and examined, no dyspnea, palpitations, dizziness or new concerns. OBJECTIVE: Vital Signs Period Temp Pulse Resp BP Sys/Thurman Pulse Ox Last 24 Hr 98.1 F-98.7 F 32-76 18-20 113-141/73-79 98 PHYSICAL EXAM GENERAL: The patient is awake, alert, and fully oriented, in no acute distress. HEAD: Normal with no signs of trauma. EYES: PERRL, extraocular movements intact, sclera anicteric, conjunctiva clear. ENT: Ears normal, nares patent, oropharynx clear without exudates, moist mucous membranes. NECK: soft, supple, no JVD visualized LUNGS: Breath sounds equal, clear to auscultation bilaterally, no wheezes, no crackles, no accessory muscle use. HEART: Regular rate and rhythm, S1, S2 (telemetry reviewed, Sinus rhythm) ABDOMEN: Soft, nontender, nondistended, normoactive bowel sounds, no guarding, no rebound EXTREMITIES: 2+ pulses, warm, well-perfused, no edema. PSYCH: Normal mood, normal affect. SKIN: Warm, dry, normal turgor, no rashes or lesions noted. LABS Laboratory Results - last 24 hr 02/06/19 02/06/19 02/06/19 12:43 17:34 22:44 Sodium Potassium Chloride Carbon Dioxide Anion Gap BUN Creatinine Creat Clearance w eGFR POC Glucometer 135 102 125 Random Glucose Calcium Phosphorus Magnesium 02/07/19 02/07/19 05:30 06:39 Sodium 140 Potassium 3.8 Chloride 105 Carbon Dioxide 26 Anion Gap 8 BUN 31 H Creatinine 2.1 H Creat Clearance w eGFR 30.62 POC Glucometer 110 Random Glucose 105 Calcium 8.8 Phosphorus 3.8 Magnesium 2.5 H 2D echo: EF 55-60%, grade I diastolic dysfunction Mild to moderate Mitral regurgitation Mild to moderate Aortic regurgitation Moderately dilated Left atrium HOSPITAL COURSE: Date of Admission:02/05/19 Date of Discharge: 02/07/19 Minutes to complete discharge: 35 Discharge Summary Reason For Visit: ATRIAL FIBRILLATION Current Active Problems Atrial fibrillation (Acute) Hospital Course: 78 yom with PMH xof PAf on Eliquis, s/p ablation 2 years ago, Non obstructive CAD, Mitral regurgitation, diastolic Heart failure, HTN, HLD, NIDDM, CKD stage II (baseline Cr around 2), [place], Prostate cancer 1999 s/p surgery, history of GI ulcer and GI polyp, history of rod arrest during anesthesia induction for endoscopy admitted with dizziness, palpitations, dyspnea on exertion, found with atrial fibrillation with RVR. He received 10 mg IV cardizem and 30 mg PO cardizem and reverted to NSR in ED. He continued to stay in sinus rhythm and asymptomatic during his stay. Cardiology was consulted, he was continued on his home dose of metoprolol, had 2D echo with EF 55-60%, grade I diastolic dysfunction, moderately dilated Left atrium and mild to moderate MR/AR. He was felt to have mild acute diastolic heart failure exacerbation and received lasix 80 mg IV x 2 doses with clinical improvement. His renal function was stable during his stay. He was continued on his eliquis. He will be discharged in stable condition with outpatient cardiology follow up. Condition: Stable - Instructions Diet, Activity, Other Instructions: MEDICATIONS: Continue your home medications as before ACTIVITY: As tolerated Daily weights, notify doctor if weight gain > 3 lbs in 2 days or leg swelling or new concerns noted FOLLOW UP: Primary care physician in 1 [address] [employer] [address] Donahue in 1 week Weigh yourself daily and notify doctor if weight gain > 3lbs in 2 days or any new leg swelling noted. Blood work for kidneys BMP (basic metabolic panel) in 1 week with your doctor. If you notice any dizziness, palpitations, trouble breathing, or any new concerns, please call 911 or come to ED. Referrals: Jeffery Donahue MD [Staff Physician] - Aubree Marie MD [Primary Care Provider] - Disposition: HOME - Home Medications Comprehensive Discharge Medication List: Ambulatory Orders Metoprolol Tartrate [Lopressor] 100 mg PO BID 02/20/15 Simvastatin [Zocor -] 10 mg PO HS 02/20/15 Glimepiride [Glimepiride -] 1 mg PO DAILY #30 tablet 02/22/15 Acetaminophen [Tylenol] 500 mg PO QID PRN 03/29/17 Apixaban [Eliquis] 2.5 mg PO BID 03/29/17 Candesartan Cilexetil [Atacand -] 4 mg PO DAILY 11/01/18 Amlodipine Besylate 5 mg PO DAILY 02/05/19 Furosemide [Lasix] 80 mg PO BID 02/05/19 Pantoprazole Sodium [Protonix] 40 mg PO DAILY 02/05/19 This patient is new to me today: No Emergency Visit: Yes ED Registration Date: 02/05/19 Care time: The patient presented to the Emergency Department on the above date and was hospitalized for further evaluation of their emergent condition. Critical Care patient: No - Discharge Referral Referred to [facility] Med P.C.: No
[2019-02-07] MEDS ORDERED: FUROSEMIDE 40 MG TABLET (FP) PO ONE (11:32)
[2019-02-07 13:09] VITALS: BP 103/57; PULSE 57
[2019-02-07 13:40] VITALS: TEMP 98.7
== END 2019-02-07 15:03 | disposition home or self-care (01) ==
LOC: JER 06:14 → JERBED 08:41 → J4W 13:51
PROVIDERS: ADMIT Hospitalist; ATTEND Hospitalist
PROC: 3E033GC Introduction of Other Therapeutic Substance into Peripheral Vein, Percutaneous Approach (ICD-10-PCS; principal; 2019-02-05)
DX: I48.0 Paroxysmal atrial fibrillation (principal); I47.1 Supraventricular tachycardia; R06.02 Shortness of breath; I50.31 Acute diastolic (congestive) heart failure; E87.2 Acidosis; E11.22 Type 2 diabetes mellitus with diabetic chronic kidney disease; I12.9 Hypertensive chronic kidney disease with stage 1 through stage 4 chronic kidney disease, or unspecified chronic kidney disease; N18.2 Chronic kidney disease, stage 2 (mild); Z79.84 Long term (current) use of oral hypoglycemic drugs; E78.5 Hyperlipidemia, unspecified; K21.9 Gastro-esophageal reflux disease without esophagitis; D64.9 Anemia, unspecified; I34.0 Nonrheumatic mitral (valve) insufficiency; D50.9 Iron deficiency anemia, unspecified; G47.33 Obstructive sleep apnea (adult) (pediatric); Z79.01 Long term (current) use of anticoagulants; Z85.46 Personal history of malignant neoplasm of prostate; Z86.73 Personal history of transient ischemic attack (TIA), and cerebral infarction without residual deficits; Z86.79 Personal history of other diseases of the circulatory system
CPT/HCPCS: 36415; 71046-TC-FY; 80048; 80053; 80061; 82550; 82962; 83605; 83721; 83735; 84100; 84443; 84484; 85025; 85610; 85730; 87040; 93005; 93010; 93306-TC; 96374; 96375; 96376; 99285-25; G0378

== ENCOUNTER 2019-11-03 07:55 | Day surgery (SDC) | payer OTHER ==
[2019-10-31 15:00] VITALS: BMI 29.6
[2019-11-03] MEDS ORDERED: MIDAZOLAM HCL 2 MG/2 ML SINGLE DOSE VIAL ONE ×2 (09:05)
[2019-11-03] MEDS ORDERED: ETOMIDATE 20 MG/10 ML AMPUL IVPUSH ONE (09:05)
[2019-11-03] MEDS ORDERED: ONDANSETRON 4 MG/2 ML VIAL ONE (09:06)
[2019-11-03 09:44] VITALS: TEMP 98.4
[2019-11-03 10:16] VITALS: BP 120/66; PULSE 67
--- NOTE | 2019-11-07 14:39 | PATH ---
Surgical Pathology Report Patient Name: KATHIA QUINN [facility]. Rec. #: [id number] /Age/Gender: 1940 (Age: 79) / M Account: [id number] Location: [facility] Taken: 11/03/2019 Received: 11/03/2019 Reported: 11/07/2019 Physicians: Shanthi Damon M.D. Specimen(s) Received A: BX ANTRUM B: ANTRAL POLYP HOT SNARE POLYPECTOMY C: BX DISTAL ESOPHAGUS Clinical History Peptic ulcer disease, gastric polyp Postoperative diagnosis: Gastric polyp, gastroesophageal reflux disease Final Diagnosis A. 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 IMMUNOSTAIN IS NEGATIVE FOR H. PYLORI ORGANISMS. B. 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 IMMUNOSTAIN IS NEGATIVE FOR H. PYLORI ORGANISMS. C. DISTAL ESOPHAGUS, BIOPSY: ESOPHAGEAL (SQUAMOUS) MUCOSA WITH NO PATHOLOGIC FINDINGS. NO COLUMNAR EPITHELIUM/INTESTINAL METAPLASIA IS IDENTIFIED. Electronically Signed Devika Wahl M.D. Gross Description A. Received in formalin, labeled "biopsy gastric antrum" are 2 treadwell, irregular portions of soft tissue measuring 0.2 and 0.5 cm. in greatest dimension. The specimens are submitted in toto in one cassette. B. Received in formalin, labeled "hot snare polypectomy antral polyp" is 1 treadwell, irregular portions of soft tissue measuring 0.6 cm. in greatest dimension. The specimen is submitted in toto in one cassette. C. Received in formalin, labeled "biopsy distal esophagus" is a treadwell, irregular portion of soft tissue measuring 0.4 cm. in greatest dimension. The specimen is submitted in toto in one cassette. 11/06/2019 saudi11/06/2019
== END 2019-11-03 10:20 | disposition home or self-care (01) ==
LOC: FASU-ENDO 07:55
PROVIDERS: ATTEND Internal Medicine
PROC: 0DB38ZX Excision of Lower Esophagus, Via Natural or Artificial Opening Endoscopic, Diagnostic (ICD-10-PCS; 2019-11-03)
PROC: 0DB68ZX Excision of Stomach, Via Natural or Artificial Opening Endoscopic, Diagnostic (ICD-10-PCS; principal; 2019-11-03 09:11)
DX: K31.7 Polyp of stomach and duodenum (principal); K29.50 Unspecified chronic gastritis without bleeding; K31.9 Disease of stomach and duodenum, unspecified
CPT/HCPCS: 82962; 88305-TC; 88342-TC

== ENCOUNTER 2021-04-18 04:12 | Day surgery (SDC) | payer OTHER ==
[2021-04-17 13:16] VITALS: BMI 30.1
[2021-04-18] MEDS ORDERED: LIDOCAINE HCL/PF 1% SDV 5ML VIAL ONE (07:31)
[2021-04-18] MEDS ORDERED: DEXAMETHASONE SOD PHOSPHATE 10 MG/1 ML VIAL ONE (07:31)
[2021-04-18] MEDS ORDERED: BUPIVACAINE HCL/PF 0.5% (5MG/ML) 10 ML VIAL ONE (07:31)
[2021-04-18] MEDS ORDERED: SODIUM CHLORIDE 0.9% P/F 10 ML VIAL IJ ONE (07:35)
[2021-04-18] MEDS ORDERED: LIDOCAINE HCL 1% PRESERVATIVE FREE - 30ML VIAL IJ ONE (10:00)
[2021-04-18] MEDS ORDERED: IOHEXOL 180 MG/1 ML ML IJ ONE ×2 (10:02)
[2021-04-18] MEDS ORDERED: BUPIVACAINE HCL/PF 0.75% 10 ML VIAL NR ONE ×2 (10:04)
[2021-04-18 11:02] VITALS: BP 140/73; PULSE 77; TEMP 97.5
== END 2021-04-18 10:45 | disposition home or self-care (01) ==
LOC: JASU-SURG 04:12
PROVIDERS: ATTEND Pain Medicine Pain Medicine
PROC: BR16YZZ Fluoroscopy of Lumbar Facet Joint(s) using Other Contrast (ICD-10-PCS; 2021-04-18)
PROC: 3E0T3BZ Introduction of Anesthetic Agent into Peripheral Nerves and Plexi, Percutaneous Approach (ICD-10-PCS; principal; 2021-04-18 10:00)
DX: M47.816 Spondylosis without myelopathy or radiculopathy, lumbar region (principal)
CPT/HCPCS: 76000-TC-FY; J1100

== ENCOUNTER 2021-05-09 04:16 | Day surgery (SDC) | payer OTHER ==
[2021-05-08 18:00] VITALS: BMI 30.1
[2021-05-09] MEDS ORDERED: TRIAMCINOLONE ACET 40MG/1ML VIAL ONE (07:30)
[2021-05-09] MEDS ORDERED: BUPIVACAINE HCL/PF 0.25% (2.5MG/ML) 10 ML VIAL ONE (07:31)
[2021-05-09] MEDS ORDERED: LIDOCAINE HCL 2% (20ML MULTI-DOSE VIAL) ONE (07:32)
[2021-05-09] MEDS ORDERED: BUPIVACAINE HCL/PF 0.75% 10 ML VIAL ONE (07:32)
[2021-05-09] MEDS ORDERED: BUPIVACAINE HCL 50 ML ONE (07:32)
[2021-05-09] MEDS ORDERED: LIDOCAINE HCL/PF 1% SDV 5ML VIAL ONE (07:33)
[2021-05-09] MEDS ORDERED: LIDOCAINE HCL 1%, 10 MG/ML (20ML VIAL) INF ONE ×2 (09:19)
[2021-05-09] MEDS ORDERED: IOHEXOL 180 MG/1 ML ML IJ ONE (09:28)
[2021-05-09] MEDS ORDERED: BUPIVACAINE HCL/PF 0.75% 10 ML VIAL NR ONE (09:29)
[2021-05-09 11:31] VITALS: BP 130/67; PULSE 72; TEMP 97.9
== END 2021-05-09 10:00 | disposition home or self-care (01) ==
LOC: JASU-SURG 04:16
PROVIDERS: ATTEND Pain Medicine Pain Medicine
PROC: BR16YZZ Fluoroscopy of Lumbar Facet Joint(s) using Other Contrast (ICD-10-PCS; 2021-05-09)
PROC: 3E0T3BZ Introduction of Anesthetic Agent into Peripheral Nerves and Plexi, Percutaneous Approach (ICD-10-PCS; principal; 2021-05-09 10:00)
DX: M47.816 Spondylosis without myelopathy or radiculopathy, lumbar region (principal)
CPT/HCPCS: 76000-TC-FY

== ENCOUNTER 2021-05-30 05:00 | Day surgery (SDC) | payer OTHER ==
[2021-05-28 15:04] VITALS: BMI 30.1
[2021-05-30] MEDS ORDERED: LIDOCAINE HCL/PF 1% SDV 5ML VIAL ONE (07:25)
[2021-05-30] MEDS ORDERED: BUPIVACAINE HCL/PF 0.75% 10 ML VIAL ONE (07:25)
[2021-05-30] MEDS ORDERED: IOHEXOL 180 MG/1 ML ML IJ ONE (12:09)
[2021-05-30] MEDS ORDERED: LIDOCAINE HCL 1% PRESERVATIVE FREE - 30ML VIAL IJ ONE (12:10)
[2021-05-30] MEDS ORDERED: LIDOCAINE HCL 2% 100 MG/5 ML DISP.SYRIN NR ONE (12:10)
[2021-05-30] MEDS ORDERED: DEXAMETHASONE SOD PHOSPHATE 10 MG/1 ML VIAL IVPUSH ONE (12:11)
[2021-05-30 14:39] VITALS: TEMP 98.1
[2021-05-30 14:44] VITALS: BP 132/73; PULSE 64
== END 2021-05-30 13:15 | disposition home or self-care (01) ==
LOC: JASU-SURG 05:00
PROVIDERS: ATTEND Pain Medicine Pain Medicine
PROC: 3E0T3TZ Introduction of Destructive Agent into Peripheral Nerves and Plexi, Percutaneous Approach (ICD-10-PCS; principal; 2021-05-30 10:00)
PROC: BR16YZZ Fluoroscopy of Lumbar Facet Joint(s) using Other Contrast (ICD-10-PCS; 2021-05-30 10:00)
DX: M47.816 Spondylosis without myelopathy or radiculopathy, lumbar region (principal)
CPT/HCPCS: 76000-TC-FY; J1100

== ENCOUNTER 2021-06-27 04:34 | Day surgery (SDC) | payer OTHER ==
[2021-06-26 08:39] VITALS: BMI 30.1
[2021-06-27] MEDS ORDERED: BUPIVACAINE HCL/PF 0.75% 10 ML VIAL ONE (07:37)
[2021-06-27] MEDS ORDERED: LIDOCAINE HCL/PF 1% SDV 5ML VIAL ONE (07:37)
[2021-06-27] MEDS ORDERED: LIDOCAINE HCL/PF 2% SDV 5ML VIAL ONE (10:43)
[2021-06-27] MEDS ORDERED: LIDOCAINE HCL 1% PRESERVATIVE FREE - 30ML VIAL IJ ONE (10:58)
[2021-06-27] MEDS ORDERED: IOHEXOL 180 MG/1 ML ML IJ ONE (10:59)
[2021-06-27] MEDS ORDERED: LIDOCAINE HCL 2% (50ML VIAL) SQ ONE (11:00)
[2021-06-27] MEDS ORDERED: DEXAMETHASONE SOD PHOSPHATE 10 MG/1 ML VIAL IM ONE (11:02)
[2021-06-27] MEDS ORDERED: BUPIVACAINE HCL/PF 0.75% 10 ML VIAL NR ONE (11:16)
[2021-06-27 11:38] VITALS: BP 127/66; PULSE 63; TEMP 97.5
== END 2021-06-27 11:45 | disposition home or self-care (01) ==
LOC: JASU-SURG 04:34
PROVIDERS: ATTEND Pain Medicine Pain Medicine
PROC: 3E0T3TZ Introduction of Destructive Agent into Peripheral Nerves and Plexi, Percutaneous Approach (ICD-10-PCS; principal; 2021-06-27 10:00)
DX: M47.816 Spondylosis without myelopathy or radiculopathy, lumbar region (principal)
CPT/HCPCS: 76000-TC-FY; J1100

== ENCOUNTER 2021-08-16 20:49 | Inpatient (IN) | payer OTHER ==
[2021-08-16] MEDS ORDERED: FUROSEMIDE 40 MG/4 ML INJECTABLE VIAL ONE (21:33)
[2021-08-16 21:51] LABS: VENOUS BASE EXCESS -5.6 mmol/L (-2-2); VENOUS O2 SATURATION 71.9 % (70-80); VENOUS PCO2 38.4 mmHg (38-52); VENOUS PH 7.33 (7.310-7.410)
[2021-08-16 21:52] LABS: EOS % 1.7 % (0-4.5); HEMATOCRIT 30.6 % (35.4-49); HEMOGLOBIN 9.4 GM/dL (11.7-16.9); LYMPH % 26.6 % (8-40); MCHC 30.7 g/dl (32.0-35.9); MEAN CELL VOLUME 71.7 fl (80-96); MEAN PLT VOLUME 8.6 fl (7.5-11.1); MONO % 5.6 % (3.8-10.2); NEUT % 65.1 % (42.8-82.8); PLATELET COUNT 245 10^3/uL (134-434); RBC 4.26 M/mm3 (4.00-5.60); WHITE BLOOD COUNT 11.2 K/mm3 (4.0-10.0)
[2021-08-16 22:07] LABS: INR 1.06 (0.83-1.09); PROTHROMBIN TIME (PATIENT) 13.1 SEC (9.7-13.0)
[2021-08-16 22:09] LABS: ACTIVATED PTT 27.7 SECONDS (25.2-36.5)
[2021-08-16 22:10] LABS: CHLORIDE 112 mmol/L (98-107); SODIUM 141 mmol/L (136-145)
[2021-08-16 22:12] LABS: CALCIUM 8.6 mg/dL (8.5-10.1)
[2021-08-16 22:13] LABS: ALBUMIN 3.4 g/dl (3.4-5.0); ANION GAP 7 MMOL/L (8-16); BLOOD UREA NITROGEN 26.9 mg/dL (7-18); CO2 23 mmol/L (21-32); GLUCOSE,RANDOM 211 mg/dL (74-106)
[2021-08-16 22:16] LABS: CREATININE 2.7 mg/dL (0.55-1.3); SGOT/AST 14 U/L (15-37); SGPT/ALT 15 U/L (13-61)
[2021-08-16 22:17] LABS: BILIRUBIN,TOTAL 0.4 mg/dL (0.2-1); TOT PROT 8.3 g/dl (6.4-8.2)
[2021-08-16 22:19] LABS: ALK PHOS 98 U/L (45-117)
[2021-08-16 22:21] LABS: N-TERMINAL BNP 3504.2 pg/ml (5-450)
[2021-08-16 22:39] LABS: ANISOCYTOSIS 3+; MACROCYTOSIS 0; PLATELET ESTIMATE NORMAL; TARGET CELLS 2+
[2021-08-16] MEDS ORDERED: FUROSEMIDE 40 MG/4 ML INJECTABLE VIAL IVPUSH ONE (22:40)
[2021-08-17 00:33] LABS: IRON SERUM 16 ug/dL (50-175); TOTAL IRON BINDING CAPACITY 353 ug/dL (250-450)
[2021-08-17 01:35] LABS: URINE APPEARANCE CLEAR; URINE BILIRUBIN NEGATIVE (NEGATIVE); URINE COLOR YELLOW; URINE GLUCOSE (UA) TRACE (NEGATIVE); URINE KETONE NEGATIVE (NEGATIVE); URINE LEUK ESTERASE NEGATIVE (NEGATIVE); URINE NITRITE NEGATIVE (NEGATIVE); URINE PROTEIN NEGATIVE (NEGATIVE); URINE UROBILINOGEN 0.2 mg/dL (0.2-1.0)
[2021-08-17] MEDS ORDERED: HEPARIN NA (PORCINE) 5,000 UNITS/ML 1ML VIAL SQ SCH (06:00)
[2021-08-17 07:22] LABS: CALCIUM 8.4 mg/dL (8.5-10.1)
[2021-08-17 07:23] LABS: ALBUMIN 3.1 g/dl (3.4-5.0); BLOOD UREA NITROGEN 27.3 mg/dL (7-18); MAGNESIUM 2.5 mg/dL (1.8-2.4)
[2021-08-17 07:26] LABS: CREATININE 2.4 mg/dL (0.55-1.3); PHOSPHOROUS 3.4 mg/dL (2.5-4.9)
[2021-08-17 07:27] LABS: BILIRUBIN,TOTAL 0.5 mg/dL (0.2-1); TOT PROT 7.1 g/dl (6.4-8.2)
[2021-08-17 07:28] LABS: HEMATOCRIT 26.4 % (35.4-49); HEMOGLOBIN 8.3 GM/dL (11.7-16.9); MCH 22.3 pg (25.7-33.7); MCHC 31.3 g/dl (32.0-35.9); MEAN CELL VOLUME 71.3 fl (80-96); MEAN PLT VOLUME 8.7 fl (7.5-11.1); PLATELET COUNT 202 10^3/uL (134-434); RBC 3.71 M/mm3 (4.00-5.60); RDW 18.3 % (11.9-15.9); WHITE BLOOD COUNT 9.3 K/mm3 (4.0-10.0)
[2021-08-17 07:36] LABS: CHOLESTEROL 119 mg/dL (50-200)
[2021-08-17 07:37] LABS: TRIGLYCERIDES 65 mg/dL (0-150)
[2021-08-17 07:38] LABS: LDL CHOLESTEROL (ONLY SJRH) 71 mg/dL (5-100)
[2021-08-17 07:39] LABS: HDL CHOLESTEROL 35 mg/dL (40-60)
[2021-08-17] MEDS: INSULIN SLIDING SCALE (NOVOLOG) 1 VIAL SQ SCH ×4 (08:06→21:36)
[2021-08-17 08:55] LABS: IRON SERUM 17 ug/dL (50-175); TOTAL IRON BINDING CAPACITY 291 ug/dL (250-450)
[2021-08-17] MEDS ORDERED: FERRIC CARBOXYMALTOSE 750 MG in SODIUM CHLORIDE 250 ML IVPB ONE (09:00)
[2021-08-17 09:08] LABS: RETICULOCYTES 2.49 % (0.5-1.5)
[2021-08-17] MEDS ORDERED: POLYETHYLENE GLYCOL (HEALTHYLAX) 3350 17 GM PACKET ONE (09:53)
[2021-08-17] MEDS ORDERED: APIXABAN 2.5 MG TABLET ONE (09:53)
[2021-08-17] MEDS ORDERED: PANTOPRAZOLE 20 MG TABLET PO ONE (09:54)
[2021-08-17] MEDS ORDERED: FUROSEMIDE 40 MG/4 ML INJECTABLE VIAL ONE ×2 (09:54→10:01)
[2021-08-17] MEDS ORDERED: ATORVASTATIN CA 10 MG TABLET (FP) ONE (09:54)
[2021-08-17] MEDS ORDERED: APIXABAN 2.5 MG TABLET PO SCH (10:00)
[2021-08-17] MEDS: APIXABAN 2.5 MG TABLET PO SCH ×2 (10:11→21:36)
[2021-08-17] MEDS: FUROSEMIDE 40 MG/4 ML INJECTABLE VIAL IVPB SCH (10:11)
[2021-08-17] MEDS: POLYETHYLENE GLYCOL (HEALTHYLAX) 3350 17 GM PACKET PO SCH (10:12)
[2021-08-17] MEDS: PANTOPRAZOLE 40 MG TABLET PO SCH (10:12)
[2021-08-17] MEDS: ATORVASTATIN CA 10 MG TABLET (FP) PO SCH (21:38)
[2021-08-18] MEDS: INSULIN SLIDING SCALE (NOVOLOG) 1 VIAL SQ SCH ×4 (06:06→21:42)
[2021-08-18 08:39] LABS: BASO % 0.5 % (0-2.0); EOS % 2.3 % (0-4.5); HEMATOCRIT 27.9 % (35.4-49); HEMOGLOBIN 8.5 GM/dL (11.7-16.9); LYMPH % 31.9 % (8-40); MCH 21.7 pg (25.7-33.7); MCHC 30.4 g/dl (32.0-35.9); MEAN CELL VOLUME 71.3 fl (80-96); MEAN PLT VOLUME 8.4 fl (7.5-11.1); MONO % 7.8 % (3.8-10.2); NEUT % 57.5 % (42.8-82.8); PLATELET COUNT 206 10^3/uL (134-434); RBC 3.92 M/mm3 (4.00-5.60); RDW 18.4 % (11.9-15.9); WHITE BLOOD COUNT 7.9 K/mm3 (4.0-10.0)
[2021-08-18 09:09] LABS: CALCIUM 8.6 mg/dL (8.5-10.1)
[2021-08-18 09:10] LABS: ALBUMIN 3.3 g/dl (3.4-5.0); BLOOD UREA NITROGEN 28.3 mg/dL (7-18); MAGNESIUM 2.4 mg/dL (1.8-2.4)
[2021-08-18 09:13] LABS: CREATININE 2.2 mg/dL (0.55-1.3); PHOSPHOROUS 3.1 mg/dL (2.5-4.9)
[2021-08-18 09:14] LABS: BILIRUBIN,TOTAL 0.6 mg/dL (0.2-1); TOT PROT 7.4 g/dl (6.4-8.2)
[2021-08-18] MEDS ORDERED: SENNOSIDES 8.6MG TABLET (FP) PO ONE (09:45)
[2021-08-18] MEDS ORDERED: FUROSEMIDE 40 MG/4 ML INJECTABLE VIAL IVPUSH ONE (09:45)
[2021-08-18] MEDS ORDERED: PATIENT'S OWN MEDICATION (NON-FORMULARY) (Metoprolol Tartrate [Metoprolol Tartrate] 100 MG PO SCH (10:00)
[2021-08-18] MEDS: PANTOPRAZOLE 40 MG TABLET PO SCH (10:23)
[2021-08-18] MEDS: POLYETHYLENE GLYCOL (HEALTHYLAX) 3350 17 GM PACKET PO SCH (10:23)
[2021-08-18] MEDS: APIXABAN 2.5 MG TABLET PO SCH ×2 (10:23→21:42)
[2021-08-18] MEDS: METOPROLOL TARTRATE 50 MG TABLET (FP) PO SCH ×2 (10:28→21:42)
[2021-08-18] MEDS: FUROSEMIDE 40 MG/4 ML INJECTABLE VIAL IVPB SCH (11:57)
[2021-08-18] MEDS: FUROSEMIDE 40 MG TABLET (FP) PO SCH (14:03)
[2021-08-18] MEDS ORDERED: guaiFENesin 200 MG/10 ML 10 ML UNIT-DOSE CUPS PO PRN (14:11)
[2021-08-18 14:49] LABS: HEMATOCRIT 27.8 % (35.4-49); HEMOGLOBIN 8.6 GM/dL (11.7-16.9); MCHC 30.8 g/dl (32.0-35.9); MEAN CELL VOLUME 71.3 fl (80-96); MEAN PLT VOLUME 8.4 fl (7.5-11.1); PLATELET COUNT 222 10^3/uL (134-434); RDW 18.3 % (11.9-15.9); WHITE BLOOD COUNT 8.4 K/mm3 (4.0-10.0)
[2021-08-18] MEDS ORDERED: ALBUTEROL SO4 2.5/IPRATROPIUM 0.5 INH SOL 3 ML VIAL.NEB. NEB ONE (17:09)
[2021-08-18 21:37] LABS: HEMATOCRIT 26.8 % (35.4-49); HEMOGLOBIN 8.3 GM/dL (11.7-16.9); MCH 21.7 pg (25.7-33.7); MEAN CELL VOLUME 70.1 fl (80-96); MEAN PLT VOLUME 7.7 fl (7.5-11.1); PLATELET COUNT 204 10^3/uL (134-434); RBC 3.82 M/mm3 (4.00-5.60); RDW 18.6 % (11.9-15.9); WHITE BLOOD COUNT 10.4 K/mm3 (4.0-10.0)
[2021-08-18] MEDS: ATORVASTATIN CA 10 MG TABLET (FP) PO SCH (21:42)
[2021-08-18] MEDS ORDERED: amLODIPine BESYLATE 5 MG TABLET (FP) PO SCH (22:00)
[2021-08-18] MEDS ORDERED: METOPROLOL TARTRATE 50 MG TABLET (FP) PO SCH (22:00)
[2021-08-19] MEDS: INSULIN SLIDING SCALE (NOVOLOG) 1 VIAL SQ SCH ×2 (06:23→12:40)
[2021-08-19] MEDS: FUROSEMIDE 40 MG TABLET (FP) PO SCH ×2 (06:23→16:01)
[2021-08-19 08:37] LABS: HEMATOCRIT 28.2 % (35.4-49); HEMOGLOBIN 8.7 GM/dL (11.7-16.9); MCHC 30.9 g/dl (32.0-35.9); MEAN CELL VOLUME 71.2 fl (80-96); MEAN PLT VOLUME 8.6 fl (7.5-11.1); PLATELET COUNT 213 10^3/uL (134-434); RBC 3.96 M/mm3 (4.00-5.60); RDW 18.5 % (11.9-15.9); WHITE BLOOD COUNT 8.2 K/mm3 (4.0-10.0)
[2021-08-19 08:56] LABS: ALBUMIN 3.1 g/dl (3.4-5.0); BLOOD UREA NITROGEN 34.9 mg/dL (7-18); CALCIUM 8.7 mg/dL (8.5-10.1); MAGNESIUM 2.4 mg/dL (1.8-2.4)
[2021-08-19 08:59] LABS: CREATININE 2.2 mg/dL (0.55-1.3)
[2021-08-19 09:00] LABS: BILIRUBIN,TOTAL 0.7 mg/dL (0.2-1); PHOSPHOROUS 3.5 mg/dL (2.5-4.9)
[2021-08-19 09:01] LABS: TOT PROT 7.2 g/dl (6.4-8.2)
[2021-08-19] MEDS ORDERED: LOSARTAN POTASSIUM 25 MG TABLET PO SCH (10:00)
[2021-08-19] MEDS ORDERED: PATIENT'S OWN MEDICATION (NON-FORMULARY) (Metoprolol Tartrate [Lopressor] 100 MG Tablet) PO SCH (10:00)
[2021-08-19] MEDS: POLYETHYLENE GLYCOL (HEALTHYLAX) 3350 17 GM PACKET PO SCH (10:06)
[2021-08-19] MEDS: METOPROLOL TARTRATE 50 MG TABLET (FP) PO SCH (10:06)
[2021-08-19] MEDS: PANTOPRAZOLE 40 MG TABLET PO SCH (10:07)
[2021-08-19] MEDS: APIXABAN 2.5 MG TABLET PO SCH (10:08)
[2021-08-19] MEDS ORDERED: FERRIC CARBOXYMALTOSE 750 MG in SODIUM CHLORIDE 250 ML IVPB ONE (10:11)
[2021-08-19] MEDS ORDERED: IRON SUCROSE INJECTION 200 MG in SODIUM CHLORIDE 90 ML IVPB ONE (11:15)
[2021-08-19 14:34] VITALS: BP 126/62; TEMP 98.7
[2021-08-19 14:47] VITALS: PULSE 78
== END 2021-08-19 18:07 | disposition home or self-care (01) | DRG 291 ==
LOC: JER 20:49 → JERBED 23:13 → J4W 08-17 14:49
PROVIDERS: ADMIT Internal Medicine; ATTEND Internal Medicine
DX: I13.0 Hypertensive heart and chronic kidney disease with heart failure and stage 1 through stage 4 chronic kidney disease, or unspecified chronic kidney disease (principal); I50.33 Acute on chronic diastolic (congestive) heart failure; J96.01 Acute respiratory failure with hypoxia; E11.22 Type 2 diabetes mellitus with diabetic chronic kidney disease; N18.30 Chronic kidney disease, stage 3 unspecified; D50.9 Iron deficiency anemia, unspecified; E11.65 Type 2 diabetes mellitus with hyperglycemia; K21.9 Gastro-esophageal reflux disease without esophagitis; D72.829 Elevated white blood cell count, unspecified; G47.30 Sleep apnea, unspecified; G43.909 Migraine, unspecified, not intractable, without status migrainosus; I48.0 Paroxysmal atrial fibrillation; F32.9 Major depressive disorder, single episode, unspecified; M79.7 Fibromyalgia; Z86.73 Personal history of transient ischemic attack (TIA), and cerebral infarction without residual deficits; Z85.46 Personal history of malignant neoplasm of prostate; Z87.11 Personal history of peptic ulcer disease
CPT/HCPCS: 36415; 71045-TC-FY; 80053; 80061; 81003; 82272; 82550; 82728; 82803; 82962; 83540; 83550; 83735; 83880; 84100; 84484; 85025; 85027; 85045; 85610; 85730; 93005; 93010; 94640; 94660; 94761; 97116-GP; 97161-GP; 99285-25; C9803; J1756; U0003; U0005

== ENCOUNTER 2021-10-21 00:48 | Inpatient (IN) | payer OTHER ==
[2021-10-21] MEDS ORDERED: FUROSEMIDE 40 MG/4 ML INJECTABLE VIAL IVPUSH ONE ×2 (01:42→04:26)
[2021-10-21] MEDS ORDERED: FUROSEMIDE 40 MG/4 ML INJECTABLE VIAL ONE ×2 (01:55→06:10)
[2021-10-21 02:19] LABS: BASO % 0.4 % (0-2.0); EOS % 2.5 % (0-4.5); HEMATOCRIT 26.9 % (35.4-49); HEMOGLOBIN 8.3 GM/dL (11.7-16.9); LYMPH % 11.7 % (8-40); MCH 22.3 pg (25.7-33.7); MCHC 30.8 g/dl (32.0-35.9); MEAN CELL VOLUME 72.6 fl (80-96); MEAN PLT VOLUME 8.5 fl (7.5-11.1); MONO % 5.3 % (3.8-10.2); NEUT % 80.1 % (42.8-82.8); PLATELET COUNT 191 10^3/uL (134-434); RDW 22.4 % (11.9-15.9); WHITE BLOOD COUNT 7.8 K/mm3 (4.0-10.0)
[2021-10-21 02:47] LABS: CHLORIDE 112 mmol/L (98-107); SODIUM 145 mmol/L (136-145)
[2021-10-21 02:49] LABS: CALCIUM 8.4 mg/dL (8.5-10.1)
[2021-10-21 02:50] LABS: ALBUMIN 3.2 g/dl (3.4-5.0); ANION GAP 8 MMOL/L (8-16); BLOOD UREA NITROGEN 26.7 mg/dL (7-18); CO2 24 mmol/L (21-32); GLUCOSE,RANDOM 148 mg/dL (74-106); MAGNESIUM 2.6 mg/dL (1.8-2.4)
[2021-10-21 02:53] LABS: CREATININE 2.9 mg/dL (0.55-1.3); SGOT/AST 10 U/L (15-37); SGPT/ALT 16 U/L (13-61)
[2021-10-21 02:55] LABS: BILIRUBIN,TOTAL 0.4 mg/dL (0.2-1); TOT PROT 7.5 g/dl (6.4-8.2)
[2021-10-21 02:56] LABS: ALK PHOS 88 U/L (45-117)
[2021-10-21 02:59] LABS: N-TERMINAL BNP 4135.6 pg/ml (5-450)
[2021-10-21] MEDS: FUROSEMIDE 40 MG/4 ML INJECTABLE VIAL IVPUSH SCH ×2 (06:21→14:17)
[2021-10-21 06:53] LABS: BASO % 0.2 % (0-2.0); EOS % 1.2 % (0-4.5); HEMATOCRIT 26.3 % (35.4-49); HEMOGLOBIN 8.1 GM/dL (11.7-16.9); LYMPH % 18.8 % (8-40); MCH 22.4 pg (25.7-33.7); MCHC 30.7 g/dl (32.0-35.9); MEAN CELL VOLUME 72.8 fl (80-96); MEAN PLT VOLUME 8.7 fl (7.5-11.1); MONO % 7.5 % (3.8-10.2); NEUT % 72.3 % (42.8-82.8); PLATELET COUNT 189 10^3/uL (134-434); RBC 3.62 M/mm3 (4.00-5.60); RDW 22.2 % (11.9-15.9); WHITE BLOOD COUNT 8.4 K/mm3 (4.0-10.0)
[2021-10-21] MEDS ORDERED: INSULIN SLIDING SCALE (NOVOLOG) 1 VIAL SQ SCH (07:00)
[2021-10-21 07:11] LABS: CALCIUM 8.3 mg/dL (8.5-10.1)
[2021-10-21 07:12] LABS: ALBUMIN 3.1 g/dl (3.4-5.0); BLOOD UREA NITROGEN 27.2 mg/dL (7-18); MAGNESIUM 2.5 mg/dL (1.8-2.4)
[2021-10-21 07:15] LABS: CREATININE 2.8 mg/dL (0.55-1.3); PHOSPHOROUS 2.8 mg/dL (2.5-4.9)
[2021-10-21 07:17] LABS: BILIRUBIN,TOTAL 0.4 mg/dL (0.2-1); TOT PROT 7.4 g/dl (6.4-8.2)
[2021-10-21] MEDS: INSULIN SLIDING SCALE (NOVOLOG) 1 VIAL SQ SCH ×4 (08:18→21:19)
[2021-10-21] MEDS ORDERED: PANTOPRAZOLE 40 MG TABLET ONE (09:12)
[2021-10-21] MEDS ORDERED: POLYETHYLENE GLYCOL (HEALTHYLAX) 3350 17 GM PACKET ONE (09:12)
[2021-10-21] MEDS ORDERED: amLODIPine BESYLATE 5 MG TABLET (FP) ONE (09:13)
[2021-10-21] MEDS ORDERED: APIXABAN 2.5 MG TABLET ONE (09:13)
[2021-10-21] MEDS ORDERED: FERROUS SO4 325 MG TABLET (FP) ONE (09:13)
[2021-10-21] MEDS ORDERED: METOPROLOL TARTRATE 50 MG TABLET (FP) ONE (09:13)
[2021-10-21] MEDS ORDERED: ACETAMINOPHEN 325 MG TABLET (FP) PO ONE (09:45)
[2021-10-21] MEDS ORDERED: GABAPENTIN 100 MG CAPSULE PO SCH (10:00)
[2021-10-21] MEDS: PANTOPRAZOLE 40 MG TABLET PO SCH ×2 (10:05→21:19)
[2021-10-21] MEDS: FERROUS SO4 325 MG TABLET (FP) PO SCH (10:05)
[2021-10-21] MEDS: APIXABAN 2.5 MG TABLET PO SCH ×2 (10:05→21:18)
[2021-10-21] MEDS: POLYETHYLENE GLYCOL (HEALTHYLAX) 3350 17 GM PACKET PO SCH (10:05)
[2021-10-21] MEDS: amLODIPine BESYLATE 5 MG TABLET (FP) PO SCH (10:05)
[2021-10-21] MEDS: METOPROLOL TARTRATE 50 MG TABLET (FP) PO SCH ×2 (10:05→21:19)
[2021-10-21] MEDS: ATORVASTATIN CA 10 MG TABLET (FP) PO SCH (21:19)
[2021-10-22] MEDS: FUROSEMIDE 40 MG/4 ML INJECTABLE VIAL IVPUSH SCH ×2 (06:41→13:57)
[2021-10-22] MEDS: INSULIN SLIDING SCALE (NOVOLOG) 1 VIAL SQ SCH ×4 (06:41→22:11)
[2021-10-22 07:46] LABS: CHLORIDE 109 mmol/L (98-107); SODIUM 143 mmol/L (136-145)
[2021-10-22 07:48] LABS: BASO % 0.5 % (0-2.0); EOS % 4.1 % (0-4.5); HEMATOCRIT 28.2 % (35.4-49); HEMOGLOBIN 8.7 GM/dL (11.7-16.9); LYMPH % 37.8 % (8-40); MCH 22.7 pg (25.7-33.7); MCHC 30.7 g/dl (32.0-35.9); MEAN CELL VOLUME 73.9 fl (80-96); MEAN PLT VOLUME 8.9 fl (7.5-11.1); MONO % 9.3 % (3.8-10.2); NEUT % 48.3 % (42.8-82.8); PLATELET COUNT 197 10^3/uL (134-434); RBC 3.82 M/mm3 (4.00-5.60); RDW 22.1 % (11.9-15.9)
[2021-10-22 08:05] LABS: BLOOD UREA NITROGEN 27.7 mg/dL (7-18); CALCIUM 8.8 mg/dL (8.5-10.1)
[2021-10-22 08:06] LABS: ANION GAP 10 MMOL/L (8-16); CO2 25 mmol/L (21-32); GLUCOSE,RANDOM 97 mg/dL (74-106); MAGNESIUM 2.6 mg/dL (1.8-2.4)
[2021-10-22 08:08] LABS: CREATININE 2.6 mg/dL (0.55-1.3)
[2021-10-22 08:09] LABS: PHOSPHOROUS 3.5 mg/dL (2.5-4.9); SGOT/AST 7 U/L (15-37); SGPT/ALT 14 U/L (13-61)
[2021-10-22 08:10] LABS: BILIRUBIN,TOTAL 0.4 mg/dL (0.2-1); TOT PROT 7.3 g/dl (6.4-8.2)
[2021-10-22 08:11] LABS: ALK PHOS 87 U/L (45-117)
[2021-10-22] MEDS: FERROUS SO4 325 MG TABLET (FP) PO SCH (09:34)
[2021-10-22] MEDS: METOPROLOL TARTRATE 50 MG TABLET (FP) PO SCH ×2 (09:34→22:10)
[2021-10-22] MEDS: PANTOPRAZOLE 40 MG TABLET PO SCH ×2 (09:34→22:10)
[2021-10-22] MEDS: POLYETHYLENE GLYCOL (HEALTHYLAX) 3350 17 GM PACKET PO SCH (09:34)
[2021-10-22] MEDS: amLODIPine BESYLATE 5 MG TABLET (FP) PO SCH (09:34)
[2021-10-22] MEDS: APIXABAN 2.5 MG TABLET PO SCH ×2 (09:34→22:10)
[2021-10-22 11:31] VITALS: BMI 29.5
[2021-10-22] MEDS: BENZOCAINE/MENTH/CETYLPYRD CL 1 EACH LOZENGE MM PRN (17:14)
[2021-10-22] MEDS: ATORVASTATIN CA 10 MG TABLET (FP) PO SCH (22:10)
[2021-10-23] MEDS: FUROSEMIDE 40 MG/4 ML INJECTABLE VIAL IVPUSH SCH ×2 (05:33→14:28)
[2021-10-23] MEDS: INSULIN SLIDING SCALE (NOVOLOG) 1 VIAL SQ SCH ×4 (06:02→21:08)
[2021-10-23 07:25] LABS: BLOOD UREA NITROGEN 34.4 mg/dL (7-18); CALCIUM 8.9 mg/dL (8.5-10.1)
[2021-10-23 07:29] LABS: CREATININE 2.6 mg/dL (0.55-1.3)
[2021-10-23 08:14] LABS: HEMATOCRIT 28.4 % (35.4-49); HEMOGLOBIN 8.7 GM/dL (11.7-16.9); MCH 22.7 pg (25.7-33.7); MCHC 30.5 g/dl (32.0-35.9); MEAN CELL VOLUME 74.4 fl (80-96); MEAN PLT VOLUME 9.4 fl (7.5-11.1); PLATELET COUNT 212 10^3/uL (134-434); RBC 3.82 M/mm3 (4.00-5.60); RDW 22.1 % (11.9-15.9); WHITE BLOOD COUNT 6.9 K/mm3 (4.0-10.0)
[2021-10-23] MEDS: POLYETHYLENE GLYCOL (HEALTHYLAX) 3350 17 GM PACKET PO SCH (11:30)
[2021-10-23] MEDS: FERROUS SO4 325 MG TABLET (FP) PO SCH (11:30)
[2021-10-23] MEDS: amLODIPine BESYLATE 5 MG TABLET (FP) PO SCH (11:30)
[2021-10-23] MEDS: METOPROLOL TARTRATE 50 MG TABLET (FP) PO SCH ×2 (11:30→21:04)
[2021-10-23] MEDS: APIXABAN 2.5 MG TABLET PO SCH ×2 (11:30→21:04)
[2021-10-23] MEDS: PANTOPRAZOLE 40 MG TABLET PO SCH ×2 (11:31→21:04)
[2021-10-23] MEDS: BENZOCAINE/MENTH/CETYLPYRD CL 1 EACH LOZENGE MM PRN (16:59)
[2021-10-23] MEDS: ATORVASTATIN CA 10 MG TABLET (FP) PO SCH (21:04)
[2021-10-24] MEDS: INSULIN SLIDING SCALE (NOVOLOG) 1 VIAL SQ SCH ×3 (06:15→16:44)
[2021-10-24] MEDS: FUROSEMIDE 40 MG TABLET (FP) PO SCH ×2 (06:15→13:09)
[2021-10-24 07:32] LABS: BLOOD UREA NITROGEN 41.5 mg/dL (7-18); CALCIUM 8.7 mg/dL (8.5-10.1)
[2021-10-24 07:36] LABS: CREATININE 2.7 mg/dL (0.55-1.3)
[2021-10-24] MEDS: APIXABAN 2.5 MG TABLET PO SCH (09:30)
[2021-10-24] MEDS: amLODIPine BESYLATE 5 MG TABLET (FP) PO SCH (09:30)
[2021-10-24] MEDS: METOPROLOL TARTRATE 50 MG TABLET (FP) PO SCH (09:30)
[2021-10-24] MEDS: FERROUS SO4 325 MG TABLET (FP) PO SCH (09:31)
[2021-10-24] MEDS: POLYETHYLENE GLYCOL (HEALTHYLAX) 3350 17 GM PACKET PO SCH (09:31)
[2021-10-24] MEDS: PANTOPRAZOLE 40 MG TABLET PO SCH (09:31)
[2021-10-24] MEDS ORDERED: DOCUSATE SODIUM 100 MG CAPSULE (FP) PO SCH (10:00)
[2021-10-24] MEDS ORDERED: SODIUM PHOSPHATE/NA BIPHOS 133 ML ENEMA PR ONE (15:18)
[2021-10-24] MEDS ORDERED: GLYCERIN 1 RECTAL SUPPOSITORY, ADULT PR ONE (15:31)
[2021-10-24 15:44] VITALS: BP 111/65; PULSE 59; TEMP 98.7
== END 2021-10-24 17:34 | disposition home or self-care (01) | DRG 291 ==
LOC: JER 00:48 → JERBED 03:14 → J4W 14:07
PROVIDERS: ATTEND Internal Medicine
DX: I13.0 Hypertensive heart and chronic kidney disease with heart failure and stage 1 through stage 4 chronic kidney disease, or unspecified chronic kidney disease (principal); I50.33 Acute on chronic diastolic (congestive) heart failure; N17.9 Acute kidney failure, unspecified; G47.33 Obstructive sleep apnea (adult) (pediatric); E11.22 Type 2 diabetes mellitus with diabetic chronic kidney disease; E78.5 Hyperlipidemia, unspecified; K21.9 Gastro-esophageal reflux disease without esophagitis; I25.10 Atherosclerotic heart disease of native coronary artery without angina pectoris; N18.9 Chronic kidney disease, unspecified; D50.9 Iron deficiency anemia, unspecified; M79.7 Fibromyalgia; I27.20 Pulmonary hypertension, unspecified; E87.70 Fluid overload, unspecified
CPT/HCPCS: 36415; 71045-TC-FY; 80048; 80053; 82728; 82962; 83010; 83540; 83550; 83615; 83735; 83880; 84100; 84443; 84484; 85025; 85027; 85045; 93005; 93010; 93306-TC; 94660; 99285-25; C9803; U0003; U0005

== ENCOUNTER 2022-01-03 14:11 | Inpatient (IN) | payer OTHER ==
[2022-01-03 14:24] VITALS: BMI 29.5
[2022-01-03 15:39] LABS: BASO % 0.9 % (0-2.0); EOS % 1.9 % (0-4.5); HEMATOCRIT 31.5 % (35.4-49); HEMOGLOBIN 9.9 GM/dL (11.7-16.9); MCHC 31.5 g/dl (32.0-35.9); MEAN CELL VOLUME 76.1 fl (80-96); MEAN PLT VOLUME 8.6 fl (7.5-11.1); MONO % 5.2 % (3.8-10.2); PLATELET COUNT 165 10^3/uL (134-434); RBC 4.13 M/mm3 (4.00-5.60); RDW 20.2 % (11.9-15.9); WHITE BLOOD COUNT 9.5 K/mm3 (4.0-10.0)
[2022-01-03 15:55] LABS: ALBUMIN 3.3 g/dl (3.4-5.0); BLOOD UREA NITROGEN 41.8 mg/dL (7-18); CALCIUM 8.7 mg/dL (8.5-10.1)
[2022-01-03 15:58] LABS: CREATININE 3.1 mg/dL (0.55-1.3)
[2022-01-03 16:00] LABS: BILIRUBIN,TOTAL 0.3 mg/dL (0.2-1); TOT PROT 7.2 g/dl (6.4-8.2)
[2022-01-03] MEDS ORDERED: FUROSEMIDE 40 MG/4 ML INJECTABLE VIAL IVPUSH ONE (19:09)
[2022-01-03] MEDS ORDERED: FUROSEMIDE 40 MG/4 ML INJECTABLE VIAL ONE (19:47)
[2022-01-03 21:28] LABS: N-TERMINAL BNP 3393.3 pg/ml (5-450)
[2022-01-03 21:32] LABS: URINE APPEARANCE CLEAR; URINE BILIRUBIN NEGATIVE (NEGATIVE); URINE COLOR YELLOW; URINE GLUCOSE (UA) NEGATIVE (NEGATIVE); URINE KETONE NEGATIVE (NEGATIVE); URINE LEUK ESTERASE NEGATIVE (NEGATIVE); URINE NITRITE NEGATIVE (NEGATIVE); URINE PROTEIN NEGATIVE (NEGATIVE); URINE UROBILINOGEN 0.2 mg/dL (0.2-1.0)
[2022-01-04] MEDS ORDERED: PANTOPRAZOLE 40 MG TABLET ONE (07:42)
[2022-01-04] MEDS ORDERED: dilTIAZem HCL 60 MG TABLET ONE (07:43)
[2022-01-04] MEDS ORDERED: APIXABAN 2.5 MG TABLET ONE ×2 (07:43→22:07)
[2022-01-04] MEDS ORDERED: METOPROLOL TARTRATE 50 MG TABLET (FP) ONE ×2 (07:43→22:07)
[2022-01-04 09:15] LABS: BASO % 0.2 % (0-2.0); EOS % 0.7 % (0-4.5); HEMATOCRIT 29.8 % (35.4-49); HEMOGLOBIN 9.3 GM/dL (11.7-16.9); LYMPH % 22.2 % (8-40); MCH 23.9 pg (25.7-33.7); MCHC 31.2 g/dl (32.0-35.9); MEAN CELL VOLUME 76.7 fl (80-96); MEAN PLT VOLUME 8.8 fl (7.5-11.1); MONO % 5.9 % (3.8-10.2); PLATELET COUNT 144 10^3/uL (134-434); RBC 3.89 M/mm3 (4.00-5.60); RDW 19.9 % (11.9-15.9); WHITE BLOOD COUNT 8.8 K/mm3 (4.0-10.0)
[2022-01-04 09:33] LABS: CALCIUM 8.5 mg/dL (8.5-10.1)
[2022-01-04 09:34] LABS: ALBUMIN 3.3 g/dl (3.4-5.0); BLOOD UREA NITROGEN 42.4 mg/dL (7-18); MAGNESIUM 2.5 mg/dL (1.8-2.4)
[2022-01-04 09:37] LABS: PHOSPHOROUS 3.1 mg/dL (2.5-4.9)
[2022-01-04 09:39] LABS: BILIRUBIN,TOTAL 0.6 mg/dL (0.2-1)
[2022-01-04] MEDS: APIXABAN 2.5 MG TABLET PO SCH ×2 (09:58→22:23)
[2022-01-04] MEDS ORDERED: PANTOPRAZOLE 40 MG TABLET PO SCH (10:00)
[2022-01-04] MEDS ORDERED: ACETAMINOPHEN 325 MG TABLET (FP) PO PRN (10:09)
[2022-01-04] MEDS ORDERED: ACETAMINOPHEN 325 MG TABLET (FP) ONE (11:39)
[2022-01-04] MEDS: METOPROLOL TARTRATE 25 MG TABLET (FP) PO SCH ×2 (11:47→22:23)
[2022-01-04] MEDS ORDERED: FUROSEMIDE 40 MG/4 ML INJECTABLE VIAL ONE (15:14)
[2022-01-04] MEDS: FUROSEMIDE 40 MG/4 ML INJECTABLE VIAL IVPUSH SCH (15:30)
[2022-01-04] MEDS: INSULIN SLIDING SCALE (NOVOLOG) 1 VIAL SQ SCH ×2 (18:13→22:12)
[2022-01-04] MEDS ORDERED: ATORVASTATIN CA 10 MG TABLET (FP) ONE (22:07)
[2022-01-04] MEDS ORDERED: MIRTAZAPINE 15 MG TABLET (FP) ONE (22:08)
[2022-01-04] MEDS: MIRTAZAPINE 15 MG TABLET (FP) PO SCH (22:23)
[2022-01-04] MEDS: ATORVASTATIN CA 10 MG TABLET (FP) PO SCH (22:23)
[2022-01-05] MEDS ORDERED: FUROSEMIDE 40 MG/4 ML INJECTABLE VIAL ONE (06:01)
[2022-01-05] MEDS: FUROSEMIDE 40 MG/4 ML INJECTABLE VIAL IVPUSH SCH ×2 (06:12→15:00)
[2022-01-05] MEDS: INSULIN SLIDING SCALE (NOVOLOG) 1 VIAL SQ SCH ×3 (08:00→17:11)
[2022-01-05 08:17] LABS: BASO % 0.2 % (0-2.0); EOS % 2.4 % (0-4.5); HEMATOCRIT 28.4 % (35.4-49); LYMPH % 23.2 % (8-40); MCH 24.3 pg (25.7-33.7); MCHC 31.8 g/dl (32.0-35.9); MEAN CELL VOLUME 76.5 fl (80-96); MONO % 7.8 % (3.8-10.2); NEUT % 66.4 % (42.8-82.8); PLATELET COUNT 134 10^3/uL (134-434); RBC 3.72 M/mm3 (4.00-5.60); RDW 19.6 % (11.9-15.9); WHITE BLOOD COUNT 7.1 K/mm3 (4.0-10.0)
[2022-01-05 08:24] LABS: INR 1.31 (0.83-1.09); PROTHROMBIN TIME (PATIENT) 15.1 SEC (9.7-13.0)
[2022-01-05 08:52] LABS: ALBUMIN 3.2 g/dl (3.4-5.0); BLOOD UREA NITROGEN 43.3 mg/dL (7-18); CALCIUM 8.9 mg/dL (8.5-10.1); MAGNESIUM 2.6 mg/dL (1.8-2.4)
[2022-01-05 08:55] LABS: CREATININE 2.8 mg/dL (0.55-1.3)
[2022-01-05 08:57] LABS: BILIRUBIN,TOTAL 0.3 mg/dL (0.2-1); TOT PROT 6.9 g/dl (6.4-8.2)
[2022-01-05] MEDS ORDERED: APIXABAN 2.5 MG TABLET ONE (09:20)
[2022-01-05] MEDS ORDERED: PANTOPRAZOLE 40 MG TABLET ONE (09:20)
[2022-01-05] MEDS ORDERED: METOPROLOL TARTRATE 50 MG TABLET (FP) ONE (09:21)
[2022-01-05] MEDS: PANTOPRAZOLE 40 MG TABLET PO SCH (11:00)
[2022-01-05] MEDS: APIXABAN 2.5 MG TABLET PO SCH (11:00)
[2022-01-05] MEDS: ALLOPURINOL 100 MG TABLET (FP) PO SCH (11:00)
[2022-01-05] MEDS: METOPROLOL TARTRATE 25 MG TABLET (FP) PO SCH (13:30)
[2022-01-05] MEDS ORDERED: DIPHTH,PERTUSS(ACELL),TET 0.5 ML DISP.SYRIN IM ONE (21:55)
[2022-01-06] MEDS: ATORVASTATIN CA 10 MG TABLET (FP) PO SCH
[2022-01-06] MEDS: MIRTAZAPINE 15 MG TABLET (FP) PO SCH
[2022-01-06] MEDS: METOPROLOL TARTRATE 25 MG TABLET (FP) PO SCH ×2 (00:01→09:48)
[2022-01-06] MEDS: INSULIN SLIDING SCALE (NOVOLOG) 1 VIAL SQ SCH ×3 (00:07→11:36)
[2022-01-06] MEDS: FUROSEMIDE 40 MG/4 ML INJECTABLE VIAL IVPUSH SCH (06:21)
[2022-01-06 07:30] LABS: BASO % 0.3 % (0-2.0); EOS % 2.6 % (0-4.5); HEMATOCRIT 29.1 % (35.4-49); HEMOGLOBIN 9.1 GM/dL (11.7-16.9); MCHC 31.2 g/dl (32.0-35.9); MEAN CELL VOLUME 76.8 fl (80-96); MEAN PLT VOLUME 8.8 fl (7.5-11.1); MONO % 8.4 % (3.8-10.2); NEUT % 60.7 % (42.8-82.8); PLATELET COUNT 147 10^3/uL (134-434); RDW 19.5 % (11.9-15.9); WHITE BLOOD COUNT 8.5 K/mm3 (4.0-10.0)
[2022-01-06 07:45] LABS: ALBUMIN 3.1 g/dl (3.4-5.0); CALCIUM 8.5 mg/dL (8.5-10.1); MAGNESIUM 2.1 mg/dL (1.8-2.4)
[2022-01-06 07:46] LABS: BLOOD UREA NITROGEN 38.8 mg/dL (7-18)
[2022-01-06 07:49] LABS: CREATININE 2.6 mg/dL (0.55-1.3)
[2022-01-06 07:50] LABS: BILIRUBIN,TOTAL 0.4 mg/dL (0.2-1)
[2022-01-06] MEDS: PANTOPRAZOLE 40 MG TABLET PO SCH (09:47)
[2022-01-06] MEDS: ALLOPURINOL 100 MG TABLET (FP) PO SCH (09:47)
[2022-01-06] MEDS: APIXABAN 2.5 MG TABLET PO SCH ×2 (09:48)
[2022-01-06 13:47] VITALS: BP 113/60; TEMP 98.4
[2022-01-06] MEDS ORDERED: TORSEMIDE 20 MG TABLET (FP) PO SCH (14:00)
[2022-01-06 15:12] VITALS: PULSE 67
== END 2022-01-06 18:59 | disposition home or self-care (01) | DRG 291 ==
LOC: JER 14:11 → JERBED 19:48 → J4W 01-05 23:45
PROVIDERS: ADMIT Internal Medicine; ATTEND Nurse Practitioner Family
DX: I13.0 Hypertensive heart and chronic kidney disease with heart failure and stage 1 through stage 4 chronic kidney disease, or unspecified chronic kidney disease (principal); I50.33 Acute on chronic diastolic (congestive) heart failure; N17.9 Acute kidney failure, unspecified; I24.8 Other forms of acute ischemic heart disease; E11.22 Type 2 diabetes mellitus with diabetic chronic kidney disease; I27.20 Pulmonary hypertension, unspecified; N18.30 Chronic kidney disease, stage 3 unspecified; D50.9 Iron deficiency anemia, unspecified; E78.5 Hyperlipidemia, unspecified; K21.9 Gastro-esophageal reflux disease without esophagitis; I25.10 Atherosclerotic heart disease of native coronary artery without angina pectoris; I48.0 Paroxysmal atrial fibrillation; M79.7 Fibromyalgia; G47.33 Obstructive sleep apnea (adult) (pediatric); E66.9 Obesity, unspecified; Z68.29 Body mass index [BMI] 29.0-29.9, adult
CPT/HCPCS: 36415; 71046-TC-FY; 71250-TC; 74176-TC; 76775-TC; 80053; 81003; 82550; 82570; 82962; 83036; 83690; 83735; 83880; 84100; 84443; 84484; 84540; 85025; 85610; 93005; 93010; 93306-TC; 94660; 94761; 97116-GP; 97161-GP; 99285-25; C9803; U0003; U0005

== ENCOUNTER 2022-03-25 13:18 | Emergency (ER) | payer OTHER ==
[2022-03-25 13:28] VITALS: BP 139/90; PULSE 121; TEMP 100.4; BMI 29.5
[2022-03-25] MEDS ORDERED: BEBTELOVIMAB (EUA) 175 MG/2 ML VIAL IVPUSH ONE (13:48)
== END 2022-03-25 16:07 | disposition home or self-care (01) ==
LOC: JER 13:18 → JCOVINFU 13:18
DX: U07.1 COVID-19 (principal)
CPT/HCPCS: 99284-25; M0222; Q0222

== ENCOUNTER 2022-09-16 09:26 | Day surgery (SDC) | payer OTHER ==
[2022-09-10 15:43] VITALS: BMI 29.6
[2022-09-16] MEDS ORDERED: NEO/POLYMYX B SULF/DEXAMETH OPHTHALMIC 5ML BOTTLE ONE (09:50)
[2022-09-16] MEDS ORDERED: CARBACHOL 0.01% INTRA-OCULAR 1.5 ML VIAL ONE (09:50)
[2022-09-16] MEDS ORDERED: BSS (NA/CA/MG/K) BALANCED SALT SOLUTION OPHTH SOLN 15 ML BOTTLE ONE (09:50)
[2022-09-16] MEDS: CIPROFLOXACIN 0.3% EYE DROPS 5 ML BOTTLE ONE ×3 (10:40→10:50)
[2022-09-16] MEDS: PHENYLEPHRINE 2.5% OPHTH SOLN 15 ML BOTTLE ONE ×3 (10:40→10:50)
[2022-09-16] MEDS: CYCLOPENTOLATE 2% OPHTH SOLN 2 ML BOTTLE ONE ×3 (10:40→10:50)
[2022-09-16] MEDS: TROPICAMIDE 1% OPHTH SOLN 15 ML BOTTLE ONE ×3 (10:40→10:50)
[2022-09-16] MEDS ORDERED: MIDAZOLAM HCL 2 MG/2 ML SINGLE DOSE VIAL ONE (11:23)
[2022-09-16 12:34] VITALS: RESP 18; TEMP 97.8
[2022-09-16 13:00] VITALS: BP 128/74; PULSE 67
== END 2022-09-16 13:02 | disposition home or self-care (01) ==
LOC: FASU 09:26
PROVIDERS: ATTEND Ophthalmology
PROC: 08RJ3JZ Replacement of Right Lens with Synthetic Substitute, Percutaneous Approach (ICD-10-PCS; principal; 2022-09-16 11:58)
DX: H26.8 Other specified cataract (principal)
CPT/HCPCS: 66984; V2632; 82962

== ENCOUNTER 2022-10-02 08:08 | Day surgery (SDC) | payer OTHER ==
[2022-10-01 15:18] VITALS: BMI 29.7
[2022-10-02] MEDS ORDERED: LIDOCAINE HCL/PF 2% SDV 5ML VIAL ONE (08:46)
[2022-10-02] MEDS ORDERED: PROPOFOL 80 ML ONE (08:46)
[2022-10-02] MEDS ORDERED: ETOMIDATE 20 MG/10 ML VIAL IVPUSH ONE ×2 (09:06→09:24)
[2022-10-02] MEDS ORDERED: MIDAZOLAM HCL 2 MG/2 ML SINGLE DOSE VIAL ONE (09:07)
[2022-10-02] MEDS ORDERED: ONDANSETRON 4 MG/2 ML VIAL ONE (09:14)
[2022-10-02 10:20] VITALS: RESP 16
[2022-10-02 11:06] VITALS: BP 114/75; PULSE 59; TEMP 97.9
== END 2022-10-02 11:00 | disposition home or self-care (01) ==
LOC: FASU-ENDO 08:08
PROVIDERS: ATTEND Internal Medicine
PROC: 0DB98ZX Excision of Duodenum, Via Natural or Artificial Opening Endoscopic, Diagnostic (ICD-10-PCS; 2022-10-02)
PROC: 0DB68ZX Excision of Stomach, Via Natural or Artificial Opening Endoscopic, Diagnostic (ICD-10-PCS; 2022-10-02)
PROC: 0DBK8ZX Excision of Ascending Colon, Via Natural or Artificial Opening Endoscopic, Diagnostic (ICD-10-PCS; principal; 2022-10-02 09:18)
DX: D50.9 Iron deficiency anemia, unspecified (principal); K64.8 Other hemorrhoids; K44.9 Diaphragmatic hernia without obstruction or gangrene; K31.7 Polyp of stomach and duodenum; K63.89 Other specified diseases of intestine
CPT/HCPCS: 82962; 88305-TC; 88341-TC; 88342-TC

== ENCOUNTER 2022-10-28 08:14 | Day surgery (SDC) | payer OTHER ==
[2022-10-22 14:20] VITALS: BMI 29.6
[2022-10-28] MEDS: CIPROFLOXACIN 0.3% EYE DROPS 5 ML BOTTLE ONE ×3 (08:40→08:50)
[2022-10-28] MEDS ORDERED: LIDOCAINE 1% P/F 10 MG/ML VIAL ONE (08:40)
[2022-10-28] MEDS ORDERED: TETRACAINE 0.5% OPHTH SOLN 2 ML BOTTLE ONE (08:40)
[2022-10-28] MEDS: TROPICAMIDE 1% OPHTH SOLN 15 ML BOTTLE ONE ×3 (08:40→08:50)
[2022-10-28] MEDS ORDERED: NEO/POLYMYX B SULF/DEXAMETH OPHTHALMIC 5ML BOTTLE ONE (08:40)
[2022-10-28] MEDS ORDERED: BSS (NA/CA/MG/K) BALANCED SALT SOLUTION OPHTH SOLN 15 ML BOTTLE ONE (08:40)
[2022-10-28] MEDS ORDERED: CARBACHOL 0.01% INTRA-OCULAR 1.5 ML VIAL ONE (08:40)
[2022-10-28] MEDS: CYCLOPENTOLATE 2% OPHTH SOLN 2 ML BOTTLE ONE ×3 (08:40→08:50)
[2022-10-28] MEDS: PHENYLEPHRINE 2.5% OPHTH SOLN 15 ML BOTTLE ONE ×3 (08:40→08:50)
[2022-10-28 08:49] VITALS: RESP 18; TEMP 98
[2022-10-28] MEDS ORDERED: MIDAZOLAM HCL 2 MG/2 ML SINGLE DOSE VIAL ONE (09:42)
[2022-10-28 10:41] VITALS: BP 144/79; PULSE 66
== END 2022-10-28 10:45 | disposition home or self-care (01) ==
LOC: FASU 08:14
PROVIDERS: ATTEND Ophthalmology
PROC: 08RK3JZ Replacement of Left Lens with Synthetic Substitute, Percutaneous Approach (ICD-10-PCS; principal; 2022-10-28 09:48)
DX: H26.8 Other specified cataract (principal)
CPT/HCPCS: 66984; V2632; 82962

== ENCOUNTER 2023-07-28 08:36 | Inpatient (IN) | payer OTHER ==
[2023-07-28] MEDS ORDERED: ACETAMINOPHEN 1000 MG/100 ML BAG IVPB ONE (09:34)
[2023-07-28] MEDS ORDERED: ACETAMINOPHEN INJECTION 100 ML IVPB ONE (09:41)
[2023-07-28 10:42] LABS: BASO % 0.8 % (0-2.0); HEMATOCRIT 33.2 % (35.4-49); HEMOGLOBIN 11.1 GM/dL (11.7-16.9); MCHC 33.6 g/dl (32.0-35.9); MEAN CELL VOLUME 86.3 fl (80-96); MEAN PLT VOLUME 8.5 fl (7.5-11.1); MONO % 5.1 % (3.8-10.2); NEUT % 70.1 % (42.8-82.8); PLATELET COUNT 201 10^3/uL (134-434); RBC 3.84 M/mm3 (4.00-5.60); RDW 14.5 % (11.9-15.9); WHITE BLOOD COUNT 10.9 K/mm3 (4.0-10.0)
[2023-07-28 10:59] LABS: POTASSIUM 5.2 mmol/L (3.5-5.1)
[2023-07-28 11:01] LABS: CALCIUM 8.9 mg/dL (8.5-10.1)
[2023-07-28 11:02] LABS: ALBUMIN 3.1 g/dl (3.4-5.0); BLOOD UREA NITROGEN 33.8 mg/dL (7-18)
[2023-07-28 11:05] LABS: CREATININE 3.6 mg/dL (0.55-1.3)
[2023-07-28 11:06] LABS: TOT PROT 8.3 g/dl (6.4-8.2)
[2023-07-28 11:07] LABS: BILIRUBIN,TOTAL 0.6 mg/dL (0.2-1)
[2023-07-28] MEDS ORDERED: PIPERACILLIN/TAZOB 4.5 GM 4.5 GM/100 ML BAG IVPB ONE ×2 (11:26→11:39)
[2023-07-28] MEDS ORDERED: VANCOMYCIN 1,000 MG in DEXTROSE 5%-WATER - 250 ML IVPB ONE (11:27)
[2023-07-28] MEDS ORDERED: VANCOMYCIN 1 GRAM (PRE-DOCKED) 1,000 MG/250 ML BAG IVPB ONE (12:56)
[2023-07-28] MEDS ORDERED: guaiFENesin 200 MG/10 ML 10 ML UNIT-DOSE CUPS PO PRN (15:15)
[2023-07-28] MEDS ORDERED: LACTATED RINGERS SOLUTION 1,000 ML/1,000 ML INFUS.BAG IV SCH (15:30)
[2023-07-28] MEDS ORDERED: MIRTAZAPINE 15 MG TABLET (FP) PO PRN (16:24)
[2023-07-28] MEDS: INSULIN SLIDING SCALE (NOVOLOG) 1 VIAL SQ SCH ×2 (17:40→21:29)
[2023-07-28 18:32] LABS: URINE APPEARANCE CLEAR; URINE BILIRUBIN NEGATIVE (NEGATIVE); URINE COLOR YELLOW; URINE GLUCOSE (UA) NEGATIVE (NEGATIVE); URINE KETONE NEGATIVE (NEGATIVE); URINE LEUK ESTERASE NEGATIVE (NEGATIVE); URINE NITRITE NEGATIVE (NEGATIVE); URINE PROTEIN TRACE (NEGATIVE); URINE UROBILINOGEN 0.2 mg/dL (0.2-1.0)
[2023-07-28 20:32] VITALS: BMI 29.4
[2023-07-28] MEDS: METOPROLOL TARTRATE 50 MG TABLET (FP) PO SCH (21:29)
[2023-07-28] MEDS: ATORVASTATIN CA 10 MG TABLET (FP) PO SCH (21:29)
[2023-07-28] MEDS: CLINDAMYCIN 300 MG PREMIX IVPB 300 MG/50 ML BAG IVPB SCH (21:29)
[2023-07-28] MEDS: APIXABAN 2.5 MG TABLET PO SCH (21:29)
[2023-07-28] MEDS ORDERED: HEPARIN NA (PORCINE) 5,000 UNITS/ML 1ML VIAL SQ SCH (22:00)
[2023-07-29] MEDS: CLINDAMYCIN 300 MG PREMIX IVPB 300 MG/50 ML BAG IVPB SCH ×2 (02:05→09:55)
[2023-07-29] MEDS: INSULIN SLIDING SCALE (NOVOLOG) 1 VIAL SQ SCH ×2 (06:01→11:04)
[2023-07-29] MEDS: LACTOBACILLUS ACIDOPHILUS 1 TABLET PO SCH (09:54)
[2023-07-29] MEDS: amLODIPine BESYLATE 5 MG TABLET (FP) PO SCH (09:54)
[2023-07-29] MEDS: LOSARTAN POTASSIUM 25 MG TABLET PO SCH (09:54)
[2023-07-29] MEDS: APIXABAN 2.5 MG TABLET PO SCH (09:54)
[2023-07-29] MEDS: ALLOPURINOL 100 MG TABLET (FP) PO SCH (09:55)
[2023-07-29] MEDS: METOPROLOL TARTRATE 50 MG TABLET (FP) PO SCH ×2 (09:55→23:32)
[2023-07-29 10:27] LABS: POTASSIUM 4.8 mmol/L (3.5-5.1)
[2023-07-29 10:31] LABS: ALBUMIN 3.1 g/dl (3.4-5.0); BASO % 0.2 % (0-2.0); CALCIUM 8.8 mg/dL (8.5-10.1); HEMATOCRIT 39.3 % (35.4-49); HEMOGLOBIN 12.7 GM/dL (11.7-16.9); LYMPH % 35.8 % (8-40); MCH 28.3 pg (25.7-33.7); MCHC 32.4 g/dl (32.0-35.9); MEAN CELL VOLUME 87.3 fl (80-96); MEAN PLT VOLUME 8.2 fl (7.5-11.1); MONO % 5.3 % (3.8-10.2); NEUT % 54.7 % (42.8-82.8); PLATELET COUNT 181 10^3/uL (134-434); RDW 14.8 % (11.9-15.9); WHITE BLOOD COUNT 11.9 K/mm3 (4.0-10.0)
[2023-07-29 10:32] LABS: MAGNESIUM 2.5 mg/dL (1.8-2.4)
[2023-07-29 10:33] LABS: BLOOD UREA NITROGEN 27.6 mg/dL (7-18)
[2023-07-29 10:36] LABS: BILIRUBIN,TOTAL 0.4 mg/dL (0.2-1); TOT PROT 7.8 g/dl (6.4-8.2)
[2023-07-29 10:55] LABS: PLATELET ESTIMATE ADEQUATE
[2023-07-29] MEDS: PIPERACILLIN/TAZOB 3.375 GM 3.375 GM in DEXTROSE 5%-WATER - 50 ML IVPB SCH ×2 (11:08→17:14)
[2023-07-29] MEDS: ATORVASTATIN CA 10 MG TABLET (FP) PO SCH (23:33)
[2023-07-30] MEDS: PIPERACILLIN/TAZOB 3.375 GM 3.375 GM in DEXTROSE 5%-WATER - 50 ML IVPB SCH ×2 (01:33→13:00)
[2023-07-30] MEDS: ACETAMINOPHEN 325 MG TABLET (FP) PO PRN ×2 (08:30→16:33)
[2023-07-30] MEDS: LOSARTAN POTASSIUM 25 MG TABLET PO SCH (10:35)
[2023-07-30] MEDS: LACTOBACILLUS ACIDOPHILUS 1 TABLET PO SCH (10:35)
[2023-07-30] MEDS: METOPROLOL TARTRATE 50 MG TABLET (FP) PO SCH ×2 (10:35→22:03)
[2023-07-30] MEDS: amLODIPine BESYLATE 5 MG TABLET (FP) PO SCH (10:35)
[2023-07-30] MEDS: ALLOPURINOL 100 MG TABLET (FP) PO SCH (10:35)
[2023-07-30 10:59] LABS: BASO % 0.3 % (0-2.0); EOS % 4.1 % (0-4.5); HEMATOCRIT 34.7 % (35.4-49); HEMOGLOBIN 11.5 GM/dL (11.7-16.9); LYMPH % 37.8 % (8-40); MCH 28.8 pg (25.7-33.7); MCHC 33.1 g/dl (32.0-35.9); MEAN PLT VOLUME 8.1 fl (7.5-11.1); MONO % 6.1 % (3.8-10.2); NEUT % 51.7 % (42.8-82.8); PLATELET COUNT 200 10^3/uL (134-434); RBC 3.99 M/mm3 (4.00-5.60); RDW 14.5 % (11.9-15.9); WHITE BLOOD COUNT 8.6 K/mm3 (4.0-10.0)
[2023-07-30 11:03] LABS: INR 1.12 (0.83-1.09)
[2023-07-30] MEDS: DOXYCYCLINE HYCLATE 100 MG CAPSULE PO SCH ×2 (11:06→17:02)
[2023-07-30 11:30] LABS: POTASSIUM 4.9 mmol/L (3.5-5.1)
[2023-07-30 12:00] LABS: BILIRUBIN,TOTAL 0.4 mg/dL (0.2-1); CALCIUM 8.7 mg/dL (8.5-10.1)
[2023-07-30 12:01] LABS: BLOOD UREA NITROGEN 24.8 mg/dL (7-18); CREATININE 2.9 mg/dL (0.55-1.3); TOT PROT 7.5 g/dl (6.4-8.2)
[2023-07-30] MEDS ORDERED: LIDOCAINE HCL 1%, 10 MG/ML (20ML VIAL) SQ ONE (14:34)
[2023-07-30] MEDS ORDERED: morphine SULFATE 4 MG/ML VIAL IVPUSH ONE (14:45)
[2023-07-30] MEDS: ATORVASTATIN CA 10 MG TABLET (FP) PO SCH (22:03)
[2023-07-31 08:26] LABS: POTASSIUM 4.4 mmol/L (3.5-5.1)
[2023-07-31 08:30] LABS: HEMATOCRIT 34.6 % (35.4-49); HEMOGLOBIN 10.9 GM/dL (11.7-16.9); MCH 28.2 pg (25.7-33.7); MCHC 31.7 g/dl (32.0-35.9); MEAN PLT VOLUME 8.5 fl (7.5-11.1); PLATELET COUNT 230 10^3/uL (134-434); RBC 3.88 M/mm3 (4.00-5.60); RDW 14.3 % (11.9-15.9); WHITE BLOOD COUNT 11.1 K/mm3 (4.0-10.0)
[2023-07-31 08:31] LABS: CALCIUM 8.6 mg/dL (8.5-10.1)
[2023-07-31 08:32] LABS: BLOOD UREA NITROGEN 25.2 mg/dL (7-18)
[2023-07-31 08:34] LABS: CREATININE 2.7 mg/dL (0.55-1.3)
[2023-07-31 08:36] LABS: BILIRUBIN,TOTAL 0.3 mg/dL (0.2-1); TOT PROT 7.7 g/dl (6.4-8.2)
[2023-07-31] MEDS: DOXYCYCLINE HYCLATE 100 MG CAPSULE PO SCH ×2 (09:23→17:03)
[2023-07-31] MEDS: METOPROLOL TARTRATE 50 MG TABLET (FP) PO SCH ×2 (09:23→22:36)
[2023-07-31] MEDS: LOSARTAN POTASSIUM 25 MG TABLET PO SCH (09:23)
[2023-07-31] MEDS: LACTOBACILLUS ACIDOPHILUS 1 TABLET PO SCH (09:24)
[2023-07-31] MEDS: ALLOPURINOL 100 MG TABLET (FP) PO SCH (09:24)
[2023-07-31] MEDS: amLODIPine BESYLATE 5 MG TABLET (FP) PO SCH (09:24)
[2023-07-31] MEDS: APIXABAN 2.5 MG TABLET PO SCH ×2 (09:24→22:37)
[2023-07-31] MEDS: ATORVASTATIN CA 10 MG TABLET (FP) PO SCH (22:37)
[2023-08-01 09:07] LABS: BASO % 0.4 % (0-2.0); EOS % 3.9 % (0-4.5); HEMATOCRIT 32.9 % (35.4-49); HEMOGLOBIN 10.5 GM/dL (11.7-16.9); LYMPH % 36.2 % (8-40); MCH 28.2 pg (25.7-33.7); MEAN CELL VOLUME 88.1 fl (80-96); MEAN PLT VOLUME 8.4 fl (7.5-11.1); MONO % 7.1 % (3.8-10.2); NEUT % 52.4 % (42.8-82.8); PLATELET COUNT 204 10^3/uL (134-434); RBC 3.73 M/mm3 (4.00-5.60); RDW 14.1 % (11.9-15.9); WHITE BLOOD COUNT 7.8 K/mm3 (4.0-10.0)
[2023-08-01] MEDS: LOSARTAN POTASSIUM 25 MG TABLET PO SCH (09:39)
[2023-08-01] MEDS: APIXABAN 2.5 MG TABLET PO SCH ×2 (09:39→22:37)
[2023-08-01] MEDS: ACETAMINOPHEN 325 MG TABLET (FP) PO PRN (09:39)
[2023-08-01] MEDS: amLODIPine BESYLATE 5 MG TABLET (FP) PO SCH (09:39)
[2023-08-01] MEDS: DOXYCYCLINE HYCLATE 100 MG CAPSULE PO SCH ×2 (09:40→17:11)
[2023-08-01] MEDS: ALLOPURINOL 100 MG TABLET (FP) PO SCH (09:40)
[2023-08-01] MEDS: METOPROLOL TARTRATE 50 MG TABLET (FP) PO SCH ×2 (09:40→22:36)
[2023-08-01] MEDS: LACTOBACILLUS ACIDOPHILUS 1 TABLET PO SCH (09:40)
[2023-08-01 11:56] LABS: BLOOD UREA NITROGEN 23.3 mg/dL (7-18); CALCIUM 8.6 mg/dL (8.5-10.1); CREATININE 2.4 mg/dL (0.55-1.3); POTASSIUM 4.7 mmol/L (3.5-5.1)
[2023-08-01 22:34] VITALS: RESP 18
[2023-08-01] MEDS: ATORVASTATIN CA 10 MG TABLET (FP) PO SCH (22:37)
[2023-08-02 09:07] LABS: HEMATOCRIT 34.1 % (35.4-49); HEMOGLOBIN 11.3 GM/dL (11.7-16.9); MCH 28.5 pg (25.7-33.7); MCHC 33.1 g/dl (32.0-35.9); MEAN CELL VOLUME 86.1 fl (80-96); MEAN PLT VOLUME 7.9 fl (7.5-11.1); PLATELET COUNT 240 10^3/uL (134-434); RBC 3.96 M/mm3 (4.00-5.60); RDW 14.4 % (11.9-15.9); WHITE BLOOD COUNT 9.7 K/mm3 (4.0-10.0)
[2023-08-02 09:35] LABS: POTASSIUM 4.6 mmol/L (3.5-5.1)
[2023-08-02 09:39] LABS: BLOOD UREA NITROGEN 27.7 mg/dL (7-18); CALCIUM 8.6 mg/dL (8.5-10.1)
[2023-08-02 09:43] LABS: CREATININE 2.5 mg/dL (0.55-1.3)
[2023-08-02] MEDS: LOSARTAN POTASSIUM 25 MG TABLET PO SCH (10:23)
[2023-08-02] MEDS: LACTOBACILLUS ACIDOPHILUS 1 TABLET PO SCH (10:23)
[2023-08-02] MEDS: METOPROLOL TARTRATE 50 MG TABLET (FP) PO SCH (10:23)
[2023-08-02] MEDS: DOXYCYCLINE HYCLATE 100 MG CAPSULE PO SCH (10:23)
[2023-08-02] MEDS: amLODIPine BESYLATE 5 MG TABLET (FP) PO SCH (10:24)
[2023-08-02] MEDS: APIXABAN 2.5 MG TABLET PO SCH (10:24)
[2023-08-02] MEDS: ALLOPURINOL 100 MG TABLET (FP) PO SCH (10:24)
[2023-08-02 10:28] VITALS: BP 144/72; PULSE 69; TEMP 98.8
== END 2023-08-02 13:52 | disposition home health service (06) | DRG 603 ==
LOC: JER 08:36 → JERBED 14:54 → J5S 18:52 → J7W 07-30 18:37
PROVIDERS: ADMIT Internal Medicine; ATTEND Internal Medicine
PROC: 0Y9C3ZZ Drainage of Right Upper Leg, Percutaneous Approach (ICD-10-PCS; principal; 2023-07-28)
PROC: 0Y9C3ZZ Drainage of Right Upper Leg, Percutaneous Approach (ICD-10-PCS; 2023-07-30)
DX: L02.415 Cutaneous abscess of right lower limb (principal); I13.0 Hypertensive heart and chronic kidney disease with heart failure and stage 1 through stage 4 chronic kidney disease, or unspecified chronic kidney disease; N17.9 Acute kidney failure, unspecified; I48.91 Unspecified atrial fibrillation; N18.9 Chronic kidney disease, unspecified; I50.9 Heart failure, unspecified; D50.9 Iron deficiency anemia, unspecified; G47.33 Obstructive sleep apnea (adult) (pediatric); K21.9 Gastro-esophageal reflux disease without esophagitis; Z85.46 Personal history of malignant neoplasm of prostate; E11.22 Type 2 diabetes mellitus with diabetic chronic kidney disease; Z79.84 Long term (current) use of oral hypoglycemic drugs; B95.62 Methicillin resistant Staphylococcus aureus infection as the cause of diseases classified elsewhere
CPT/HCPCS: 0241U-QW; 36415; 71046-TC-FY; 76882-TC-RT-FY; 80048; 80053; 81003; 82962; 83036; 83605; 83735; 84100; 85025; 85027; 85610; 86850; 86900; 86901; 87040; 87070; 87086; 87186; 87205; 97116-GP; 99285-25

== ENCOUNTER 2023-09-20 06:38 | Inpatient (IN) | payer OTHER ==
[2023-09-20 06:45] VITALS: BMI 31.0
[2023-09-20 08:58] LABS: BASO % 0.3 % (0-2.0); EOS % 2.6 % (0-4.5); HEMATOCRIT 38.7 % (35.4-49); HEMOGLOBIN 12.1 GM/dL (11.7-16.9); LYMPH % 33.3 % (8-40); MCH 27.6 pg (25.7-33.7); MCHC 31.3 g/dl (32.0-35.9); MEAN CELL VOLUME 88.3 fl (80-96); NEUT % 57.8 % (42.8-82.8); PLATELET COUNT 163 10^3/uL (134-434); RBC 4.38 M/mm3 (4.00-5.60); RDW 15.3 % (11.9-15.9); WHITE BLOOD COUNT 6.9 K/mm3 (4.0-10.0)
[2023-09-20 09:05] LABS: INR 1.26 (0.83-1.09); PROTHROMBIN TIME (PATIENT) 14.6 SEC (9.7-13.0)
[2023-09-20 09:07] LABS: ACTIVATED PTT 37.5 SECONDS (25.2-36.5)
[2023-09-20] MEDS ORDERED: MIRTAZAPINE 15 MG TABLET (FP) PO PRN (09:39)
[2023-09-20 09:41] LABS: CHLORIDE 109 mmol/L (98-107); POTASSIUM 3.9 mmol/L (3.5-5.1); SODIUM 143 mmol/L (136-145)
[2023-09-20 09:43] LABS: ALBUMIN 3.8 g/dl (3.4-5.0); ANION GAP 5 mmol/L (4-13); BLOOD UREA NITROGEN 37.3 mg/dL (7-18); CO2 28 mmol/L (21-32); GLUCOSE,RANDOM 109 mg/dL (74-106)
[2023-09-20 09:46] LABS: SGOT/AST 12 U/L (15-37); SGPT/ALT 18 U/L (13-61)
[2023-09-20 09:48] LABS: BILIRUBIN,TOTAL 0.4 mg/dL (0.2-1); TOT PROT 8.1 g/dl (6.4-8.2)
[2023-09-20 09:49] LABS: ALK PHOS 102 U/L (45-117)
[2023-09-20] MEDS ORDERED: amLODIPine BESYLATE 5 MG TABLET (FP) ONE (11:37)
[2023-09-20] MEDS ORDERED: PANTOPRAZOLE 40 MG TABLET PO ONE ×2 (11:37→21:57)
[2023-09-20] MEDS ORDERED: LOSARTAN POTASSIUM 25 MG TABLET ONE (11:37)
[2023-09-20] MEDS ORDERED: METOPROLOL TARTRATE 50 MG TABLET (FP) ONE ×2 (11:38→21:57)
[2023-09-20] MEDS: METOPROLOL TARTRATE 50 MG TABLET (FP) PO SCH ×2 (11:43→22:02)
[2023-09-20] MEDS: LOSARTAN POTASSIUM 25 MG TABLET PO SCH (11:43)
[2023-09-20] MEDS: ALLOPURINOL 100 MG TABLET (FP) PO SCH (11:43)
[2023-09-20] MEDS: PANTOPRAZOLE 40 MG TABLET PO SCH ×2 (11:44→22:03)
[2023-09-20] MEDS: amLODIPine BESYLATE 5 MG TABLET (FP) PO SCH (11:44)
[2023-09-20] MEDS: INSULIN SLIDING SCALE (NOVOLOG) 1 VIAL SQ SCH ×3 (12:42→22:02)
[2023-09-20 15:54] LABS: URINE APPEARANCE CLEAR; URINE BILIRUBIN NEGATIVE (NEGATIVE); URINE COLOR YELLOW; URINE GLUCOSE (UA) TRACE (NEGATIVE); URINE KETONE NEGATIVE (NEGATIVE); URINE LEUK ESTERASE NEGATIVE (NEGATIVE); URINE NITRITE NEGATIVE (NEGATIVE); URINE PROTEIN NEGATIVE (NEGATIVE); URINE UROBILINOGEN 0.2 mg/dL (0.2-1.0)
[2023-09-20] MEDS ORDERED: ATORVASTATIN CA 20 MG TABLET (FP) ONE (21:57)
[2023-09-20] MEDS ORDERED: ATORVASTATIN CA 10 MG TABLET (FP) PO SCH (22:00)
[2023-09-21] MEDS ORDERED: BUPIVACAINE HCL/PF 0.5% (5MG/ML) 10 ML VIAL IJ ONE
[2023-09-21 07:25] LABS: BASO % 0.4 % (0-2.0); EOS % 2.8 % (0-4.5); HEMATOCRIT 36.2 % (35.4-49); HEMOGLOBIN 12.1 GM/dL (11.7-16.9); LYMPH % 42.3 % (8-40); MCH 28.8 pg (25.7-33.7); MCHC 33.4 g/dl (32.0-35.9); MEAN CELL VOLUME 86.2 fl (80-96); MEAN PLT VOLUME 8.2 fl (7.5-11.1); MONO % 7.3 % (3.8-10.2); NEUT % 47.2 % (42.8-82.8); PLATELET COUNT 141 10^3/uL (134-434); RBC 4.19 M/mm3 (4.00-5.60); RDW 15.3 % (11.9-15.9); WHITE BLOOD COUNT 7.4 K/mm3 (4.0-10.0)
[2023-09-21] MEDS ORDERED: LIDOCAINE HCL 2% (20ML MULTI-DOSE VIAL) ONE (07:29)
[2023-09-21] MEDS ORDERED: BUPIVACAINE HCL/PF 0.5% (5MG/ML) 10 ML VIAL ONE (07:29)
[2023-09-21] MEDS ORDERED: GENTAMICIN SO4 80 MG/2 ML VIAL ONE (07:29)
[2023-09-21] MEDS ORDERED: LIDOCAINE HCL 1%, 10 MG/ML (20ML VIAL) ONE (07:29)
[2023-09-21 07:53] LABS: POTASSIUM 3.9 mmol/L (3.5-5.1)
[2023-09-21 07:59] LABS: CALCIUM 8.6 mg/dL (8.5-10.1)
[2023-09-21 08:00] LABS: ALBUMIN 3.4 g/dl (3.4-5.0); MAGNESIUM 2.1 mg/dL (1.8-2.4)
[2023-09-21 08:02] LABS: BILIRUBIN,TOTAL 0.5 mg/dL (0.2-1); TOT PROT 7.3 g/dl (6.4-8.2)
[2023-09-21 08:04] LABS: CREATININE 2.6 mg/dL (0.55-1.3); PHOSPHOROUS 3.1 mg/dL (2.5-4.9)
[2023-09-21] MEDS: INSULIN SLIDING SCALE (NOVOLOG) 1 VIAL SQ SCH ×4 (08:25→21:27)
[2023-09-21] MEDS ORDERED: FENTANYL CITRATE/PF 50 MCG/ML VIAL ONE (08:39)
[2023-09-21] MEDS ORDERED: MIDAZOLAM HCL 2 MG/2 ML SINGLE DOSE VIAL ONE (08:39)
[2023-09-21] MEDS ORDERED: ceFAZolin SODIUM 1 GM VIAL ONE (09:15)
[2023-09-21] MEDS ORDERED: LIDOCAINE HCL 2% (50ML VIAL) NR ONE ×2 (09:15)
[2023-09-21] MEDS ORDERED: ONDANSETRON 4 MG/2 ML VIAL ONE (09:15)
[2023-09-21] MEDS ORDERED: DEXAMETHASONE SOD PHOSPHATE 4 MG/1 ML VIAL ONE (09:15)
[2023-09-21] MEDS ORDERED: PROPOFOL 20 ML ONE (09:17)
[2023-09-21] MEDS ORDERED: PROMETHAZINE HCL 25 MG/1 ML VIAL IVPB PRN (09:40)
[2023-09-21] MEDS ORDERED: ONDANSETRON 4 MG/2 ML VIAL IVPUSH PRN (09:40)
[2023-09-21] MEDS ORDERED: LACTATED RINGERS SOLUTION 1,000 ML IV SCH (09:45)
[2023-09-21] MEDS ORDERED: ACETAMINOPHEN 1000 MG/100 ML BAG IVPB ONE (10:00)
[2023-09-21] MEDS ORDERED: MIRTAZAPINE 15 MG TABLET (FP) PO PRN (10:08)
[2023-09-21] MEDS ORDERED: ACETAMINOPHEN INJECTION 100 ML IVPB ONE (12:38)
[2023-09-21] MEDS: LOSARTAN POTASSIUM 25 MG TABLET PO SCH ×2 (13:19→14:51)
[2023-09-21] MEDS: ALLOPURINOL 100 MG TABLET (FP) PO SCH ×2 (13:19→15:11)
[2023-09-21] MEDS: PANTOPRAZOLE 40 MG TABLET PO SCH ×3 (13:19→21:24)
[2023-09-21] MEDS: amLODIPine BESYLATE 5 MG TABLET (FP) PO SCH ×2 (13:19→14:52)
[2023-09-21] MEDS: METOPROLOL TARTRATE 50 MG TABLET (FP) PO SCH ×3 (13:19→21:24)
[2023-09-21] MEDS: CEFTRIAXONE 2 GM in DEXTROSE 5%-WATER 100 ML IVPB SCH (14:24)
[2023-09-21] MEDS: ATORVASTATIN CA 10 MG TABLET (FP) PO SCH (21:24)
[2023-09-22] MEDS: INSULIN SLIDING SCALE (NOVOLOG) 1 VIAL SQ SCH ×4 (06:16→21:11)
[2023-09-22] MEDS: CEFTRIAXONE 2 GM in DEXTROSE 5%-WATER 100 ML IVPB SCH (10:00)
[2023-09-22] MEDS: PANTOPRAZOLE 40 MG TABLET PO SCH ×2 (10:01→21:10)
[2023-09-22] MEDS: amLODIPine BESYLATE 5 MG TABLET (FP) PO SCH (10:01)
[2023-09-22] MEDS: ALLOPURINOL 100 MG TABLET (FP) PO SCH (10:01)
[2023-09-22] MEDS: LOSARTAN POTASSIUM 25 MG TABLET PO SCH (10:02)
[2023-09-22] MEDS: METOPROLOL TARTRATE 50 MG TABLET (FP) PO SCH ×2 (10:02→21:11)
[2023-09-22 11:10] LABS: HEMATOCRIT 35.1 % (35.4-49); HEMOGLOBIN 11.6 GM/dL (11.7-16.9); LYMPH % 14.5 % (8-40); MCH 28.4 pg (25.7-33.7); MCHC 33.1 g/dl (32.0-35.9); MEAN CELL VOLUME 85.9 fl (80-96); MEAN PLT VOLUME 8.3 fl (7.5-11.1); MONO % 4.3 % (3.8-10.2); NEUT % 81.2 % (42.8-82.8); PLATELET COUNT 147 10^3/uL (134-434); RBC 4.08 M/mm3 (4.00-5.60); RDW 15.1 % (11.9-15.9); WHITE BLOOD COUNT 14.4 K/mm3 (4.0-10.0)
[2023-09-22 11:38] LABS: POTASSIUM 4.2 mmol/L (3.5-5.1)
[2023-09-22 11:52] LABS: ALBUMIN 3.3 g/dl (3.4-5.0); BLOOD UREA NITROGEN 35.9 mg/dL (7-18); CALCIUM 8.7 mg/dL (8.5-10.1)
[2023-09-22 11:56] LABS: BILIRUBIN,TOTAL 0.8 mg/dL (0.2-1); CREATININE 2.7 mg/dL (0.55-1.3); TOT PROT 7.4 g/dl (6.4-8.2)
[2023-09-22] MEDS: ATORVASTATIN CA 10 MG TABLET (FP) PO SCH (21:10)
[2023-09-22] MEDS: APIXABAN 2.5 MG TABLET PO SCH (21:10)
[2023-09-22] MEDS ORDERED: APIXABAN 2.5 MG TABLET PO SCH (22:00)
[2023-09-23] MEDS: INSULIN SLIDING SCALE (NOVOLOG) 1 VIAL SQ SCH ×5 (06:38→23:02)
[2023-09-23 09:19] LABS: BASO % 0.2 % (0-2.0); EOS % 1.9 % (0-4.5); HEMATOCRIT 35.7 % (35.4-49); HEMOGLOBIN 11.3 GM/dL (11.7-16.9); MCH 27.8 pg (25.7-33.7); MCHC 31.6 g/dl (32.0-35.9); MEAN CELL VOLUME 87.9 fl (80-96); MEAN PLT VOLUME 8.3 fl (7.5-11.1); MONO % 5.3 % (3.8-10.2); NEUT % 64.6 % (42.8-82.8); PLATELET COUNT 143 10^3/uL (134-434); RBC 4.06 M/mm3 (4.00-5.60); RDW 15.4 % (11.9-15.9); WHITE BLOOD COUNT 10.9 K/mm3 (4.0-10.0)
[2023-09-23 09:52] LABS: ALBUMIN 3.2 g/dl (3.4-5.0); CALCIUM 8.6 mg/dL (8.5-10.1)
[2023-09-23 09:53] LABS: BLOOD UREA NITROGEN 41.5 mg/dL (7-18)
[2023-09-23 09:55] LABS: CREATININE 2.5 mg/dL (0.55-1.3)
[2023-09-23 09:57] LABS: BILIRUBIN,TOTAL 0.2 mg/dL (0.2-1)
[2023-09-23] MEDS: ALLOPURINOL 100 MG TABLET (FP) PO SCH (10:41)
[2023-09-23] MEDS: amLODIPine BESYLATE 5 MG TABLET (FP) PO SCH (10:41)
[2023-09-23] MEDS: APIXABAN 2.5 MG TABLET PO SCH ×2 (10:41→22:51)
[2023-09-23] MEDS: PANTOPRAZOLE 40 MG TABLET PO SCH ×2 (10:42→22:51)
[2023-09-23] MEDS: CEFTRIAXONE 2 GM in DEXTROSE 5%-WATER 100 ML IVPB SCH (10:42)
[2023-09-23] MEDS: LOSARTAN POTASSIUM 25 MG TABLET PO SCH (10:42)
[2023-09-23] MEDS: METOPROLOL TARTRATE 50 MG TABLET (FP) PO SCH ×2 (10:42→22:51)
[2023-09-23] MEDS ORDERED: VANCOMYCIN/WATER FOR INJ (PEG) 1,000 MG/200 ML BAG IVPB ONE (13:15)
[2023-09-23] MEDS ORDERED: AZITHROMYCIN 1% OPHTH SOLN 1 BOTTLE OS SCH (14:15)
[2023-09-23] MEDS ORDERED: ACETAMINOPHEN 325 MG TABLET (FP) PO ONE (15:02)
[2023-09-23] MEDS: OFLOXACIN 0.3% OPHTHALMIC SOLUTION 5 ML BOTTLE OS SCH ×3 (17:35→22:52)
[2023-09-23] MEDS: ATORVASTATIN CA 10 MG TABLET (FP) PO SCH (22:51)
[2023-09-24] MEDS: INSULIN SLIDING SCALE (NOVOLOG) 1 VIAL SQ SCH ×2 (06:02→12:14)
[2023-09-24 06:12] VITALS: RESP 18
[2023-09-24] MEDS: OFLOXACIN 0.3% OPHTHALMIC SOLUTION 5 ML BOTTLE OS SCH ×3 (06:15→13:08)
[2023-09-24] MEDS ORDERED: ACETAMINOPHEN 325 MG TABLET (FP) PO PRN (07:27)
[2023-09-24 09:30] LABS: HEMATOCRIT 36.9 % (35.4-49); HEMOGLOBIN 12.3 GM/dL (11.7-16.9); MCH 28.7 pg (25.7-33.7); MCHC 33.4 g/dl (32.0-35.9); MEAN PLT VOLUME 8.2 fl (7.5-11.1); PLATELET COUNT 157 10^3/uL (134-434); RBC 4.29 M/mm3 (4.00-5.60); RDW 15.3 % (11.9-15.9); WHITE BLOOD COUNT 9.9 K/mm3 (4.0-10.0)
[2023-09-24 09:51] LABS: POTASSIUM 4.2 mmol/L (3.5-5.1)
[2023-09-24 10:06] LABS: BLOOD UREA NITROGEN 33.2 mg/dL (7-18); CALCIUM 9.1 mg/dL (8.5-10.1)
[2023-09-24 10:07] LABS: CREATININE 2.4 mg/dL (0.55-1.3)
[2023-09-24] MEDS: METOPROLOL TARTRATE 50 MG TABLET (FP) PO SCH (10:42)
[2023-09-24] MEDS: PANTOPRAZOLE 40 MG TABLET PO SCH (10:42)
[2023-09-24] MEDS: amLODIPine BESYLATE 5 MG TABLET (FP) PO SCH (10:43)
[2023-09-24] MEDS: LOSARTAN POTASSIUM 25 MG TABLET PO SCH (10:43)
[2023-09-24] MEDS: ALLOPURINOL 100 MG TABLET (FP) PO SCH (10:43)
[2023-09-24] MEDS: APIXABAN 2.5 MG TABLET PO SCH (10:43)
[2023-09-24] MEDS: CEFTRIAXONE 2 GM in DEXTROSE 5%-WATER 100 ML IVPB SCH (10:43)
[2023-09-24 14:27] VITALS: BP 134/79; PULSE 67; TEMP 98.1
== END 2023-09-24 16:39 | disposition home or self-care (01) | DRG 478 ==
LOC: JER 06:38 → JERBED 08:19 → J5S 09-21 13:37
PROVIDERS: ADMIT Internal Medicine; ATTEND Internal Medicine
PROC: 0QBQ3ZX Excision of Right Toe Phalanx, Percutaneous Approach, Diagnostic (ICD-10-PCS; principal; 2023-09-21 09:00)
DX: M86.671 Other chronic osteomyelitis, right ankle and foot (principal); I13.0 Hypertensive heart and chronic kidney disease with heart failure and stage 1 through stage 4 chronic kidney disease, or unspecified chronic kidney disease; E11.69 Type 2 diabetes mellitus with other specified complication; B95.62 Methicillin resistant Staphylococcus aureus infection as the cause of diseases classified elsewhere; I48.91 Unspecified atrial fibrillation; D50.9 Iron deficiency anemia, unspecified; E11.22 Type 2 diabetes mellitus with diabetic chronic kidney disease; N18.9 Chronic kidney disease, unspecified; E78.5 Hyperlipidemia, unspecified; K21.9 Gastro-esophageal reflux disease without esophagitis; G43.909 Migraine, unspecified, not intractable, without status migrainosus; I50.9 Heart failure, unspecified; E11.42 Type 2 diabetes mellitus with diabetic polyneuropathy; F32.A Depression, unspecified; H11.32 Conjunctival hemorrhage, left eye; M10.9 Gout, unspecified; M79.7 Fibromyalgia; G47.33 Obstructive sleep apnea (adult) (pediatric); Z85.46 Personal history of malignant neoplasm of prostate; Z86.73 Personal history of transient ischemic attack (TIA), and cerebral infarction without residual deficits; Z87.11 Personal history of peptic ulcer disease
CPT/HCPCS: 0241U-QW; 36415; 73630-TC-RT-FY; 80048; 80053; 81003; 82962; 83735; 84100; 85025; 85027; 85610; 85651; 85730; 86140; 86850; 86900; 86901; 87040; 87070; 87075; 87086; 87186; 87205; 93005; 93010; 93925-TC; 94760; 97116-GP; 97161-GP; 99285-25

== ENCOUNTER 2023-10-02 10:41 | Day surgery (SDC) | payer OTHER ==
[2023-10-02 10:57] VITALS: BP 142/65; PULSE 69; RESP 18; TEMP 98
[2023-10-02] MEDS ORDERED: DEXTROSE 5% IVPB ONE (11:15)
[2023-10-02] MEDS ORDERED: WATER IVPB ONE (11:15)
[2023-10-02] MEDS ORDERED: DALBAVANCIN HCL IVPB ONE (11:15)
== END 2023-10-02 12:41 | disposition home or self-care (01) ==
LOC: FM/S 10:41 → FINFUSION 10:41
PROVIDERS: ATTEND Internal Medicine Infectious Disease
DX: M86.8X7 Other osteomyelitis, ankle and foot (principal)
CPT/HCPCS: 96365; 96366; 96367; J0875